=== PATIENT | male | born 1945 | race Caucasian/White ===

== ENCOUNTER 2018-11-25 12:18 | Inpatient (IN) | payer MEDICARE, BC ==
--- NOTE | 2017-11-26 21:45 | NUR ---
PT TO ROOM 103 S/P CYSTOSCOPY WITH OPEN BLADDER REPAIR, O.R. NURSE MAGUI AT BEDSIDE. DR URENA HERE PRIOR TO ARRIVAL, PROCEDURE EXPLAINED TO RN, ORDERS FOR CBI GIVEN. UPON ARRIVAL, PATIENT DROWSY BUT ANSWERING QUESTIONS APPROPRIATELY. ALL VSS, RECHECK HGB 11.0. FAMILY AT BEDSIDE- UPDATED ON PT STATUS/PLAN OF CARE.
[~2018-11-25] VITALS: Ht 172.7 cm; Wt 85.5 kg
[~2018-11-25 12:18] MED LIST: ASPI-482 PO; FENO134C PO; FENO145T PO; HYDR-2765 PO; PIOG30TA41 PO; POLY17PO28 PO; RAMI2.5C2 PO; SIMV40TA PO; SIMV80TA17 PO
[2018-11-25 13:08] LABS: CLARITY,URINE BLOODY; COLOR,URINE RED
[2018-11-25 13:09] LABS: BACTERIA,URINE MANY /HPF (0-FEW); RBC,URINE TNTC /HPF (0-2)
[2018-11-25 13:37] LABS: BASO # 0.1 x10^3/uL (0.0-0.2); BASO % 1 % (0-3); EOS # 0.1 x10^3/uL (0.0-0.7); EOS % 2 % (0-3); HEMATOCRIT 30.1 % (39.0-53.0); HEMOGLOBIN 9.9 g/dL (13.0-17.5); LYMPH # 1.1 x10^3/uL (1.0-4.8); LYMPH % 17 % (24-48); MEAN CORPUSCULAR HEMOGLOBIN 34 pg (25-35); MEAN CORPUSCULAR HGB CONC 33 g/dL (31-37); MEAN CORPUSCULAR VOLUME 103 fL (79-100); MONO # 0.6 x10^3/uL (0.0-1.1); MONO % 8 % (0-9); NEUT # 4.8 x10^3uL (1.8-7.7); NEUT % 72 % (31-73); PLATELET COUNT 311 x10^3/uL (140-400); RED BLOOD COUNT 2.93 x10^6/uL (4.30-5.70); RED CELL DISTRIBUTION WIDTH 19.8 % (11.5-14.5); WHITE BLOOD COUNT 6.6 x10^3/uL (4.0-11.0)
[2018-11-25 13:56] LABS: CALCIUM 9.5 mg/dL (8.5-10.1); CREATININE 1.1 mg/dL (0.7-1.3); POTASSIUM 4.9 mmol/L (3.5-5.1)
[2018-11-25 14:03] LABS: ALBUMIN 3.4 g/dL (3.4-5.0); ALBUMIN/GLOBULIN RATIO 0.9 (1.0-1.7); TOTAL BILIRUBIN 0.5 mg/dL (0.2-1.0); TOTAL PROTEIN 7.1 g/dL (6.4-8.2)
[2018-11-25] MEDS ORDERED: IV NORMAL SALINE 500ML BAG 500 ML IV ONE (14:30)
[2018-11-25] MEDS ORDERED: cefTRIAXone IV Push 1 GM VIAL. IVP ONE (14:30)
[2018-11-25] MEDS ORDERED: OPIUM/BELLADONNA 30/16.2MG SUPP.RECT. PR ONE (15:15)
[2018-11-25] MEDS ORDERED: diazePAM 5 MG TABLET PO ONE (15:45)
--- NOTE | 2018-11-25 15:53 | PHYS DOC ---
Past Medical History Past Medical History: Cancer, Depression, Diabetes-Type II, High Cholesterol, Other Additional Past Medical Histor: prostate cancer with radiation treatment Past Surgical History: No Surgical History, Tonsillectomy, Other Additional Past Surgical Histo: right hip fx repair, adenoidectomy Alcohol Use: None Drug Use: None Adult General Chief Complaint Chief Complaint: URINARY RETENTION [facility] HPI Patient is a 73 year old male who presents to the emergency department with complaints of suprapubic pain and acute urinary retention. Patient reports that he was last able to urinate about 5:00 this morning. Since then he has not been able to urinate the only thing that has come out of his penis is bright red blood. Patient denies any fever, dysuria, back pain, testicular pain, testicular swelling, groin pain, nausea, vomiting, shortness of breath, or chest pain. He reports that the pain in his suprapubic area is a 10/10 on the pain scale, there are no alleviating factors, the pain is constant and increases with suprapubic palpation. Review of Systems Review of Systems Constitutional: Denies fever or chills [] Eyes: Denies change in visual acuity, redness, or eye pain [] HENT: Denies nasal congestion or sore throat [] Respiratory: Denies cough or shortness of breath [] Cardiovascular: No additional information not addressed in HPI [] GI: Denies abdominal pain, nausea, vomiting, bloody stools or diarrhea [] : Denies dysuria or hematuria [] Musculoskeletal: Denies back pain or joint pain [] Integument: Denies rash or skin lesions [] Neurologic: Denies headache, focal weakness or sensory changes [] Endocrine: Denies polyuria or polydipsia [] All other systems were reviewed and found to be within normal limits, except as documented in this note. Allergies Allergies Allergies Coded Allergies Type Severity Reaction Last Updated Verified No Known Drug Allergies 10/14/13 No Physical Exam Physical Exam Constitutional: Well developed, well nourished, moderate distress, ill appearance. [] HENT: Normocephalic, atraumatic, bilateral external ears normal,nose normal. [] Eyes: conjunctiva normal, no discharge. [] Neck: Normal range of motion, no stridor. [] Cardiovascular: Heart rate regular rhythm, no murmur [] Lungs & Thorax: Bilateral breath sounds clear to auscultation, diminished in bases bilat [] Abdomen: Bowel sounds normal, soft, no pulsatile masses; suprapubic tenderness and firmness to palpation. Skin: Warm, dry, no erythema, no rash. [] Extremities: No cyanosis, no edema. [] Neurologic: Alert and oriented X 3, normal motor function, normal sensory function, no focal deficits noted. [] Psychologic: Affect anxious, judgement normal Current Patient Data Vital Signs Vital Signs Date Time Temp Pulse Resp B/P (MAP) Pulse Ox O2 Delivery O2 Flow Rate FiO2 11/25/18 12:30 97.6 97 18 138/60 (86) 94 Room Air 97.6 Lab Values Laboratory Tests Test 11/25/18 12:46 11/25/18 13:25 Urine Collection Type Unknown Urine Color Red Urine Clarity Bloody Urine pH Urine Specific [place] Urine Protein mg/dL (NEG-TRACE) Urine Glucose (UA) mg/dL (NEG) Urine Ketones (Stick) mg/dL (NEG) Urine Blood (NEG) Urine Nitrite (NEG) Urine Bilirubin (NEG) Urine Urobilinogen Dipstick mg/dL (0.2 mg/dL) Urine Leukocyte Esterase (NEG) Urine RBC Tntc /HPF (0-2) Urine WBC 5-10 /HPF (0-4) Urine Bacteria Many /HPF (0-FEW) White Blood Count 6.6 x10^3/uL (4.0-11.0) Red Blood Count 2.93 x10^6/uL (4.30-5.70) L Hemoglobin 9.9 g/dL (13.0-17.5) L Hematocrit 30.1 % (39.0-53.0) L Mean Corpuscular Volume 103 fL (79-100) H Mean Corpuscular Hemoglobin 34 pg (25-35) Mean Corpuscular Hemoglobin Concent 33 g/dL (31-37) Red Cell Distribution Width 19.8 % (11.5-14.5) H Platelet Count 311 x10^3/uL (140-400) Neutrophils (%) (Auto) 72 % (31-73) Lymphocytes (%) (Auto) 17 % (24-48) L Monocytes (%) (Auto) 8 % (0-9) Eosinophils (%) (Auto) 2 % (0-3) Basophils (%) (Auto) 1 % (0-3) Neutrophils # (Auto) 4.8 x10^3uL (1.8-7.7) Lymphocytes # (Auto) 1.1 x10^3/uL (1.0-4.8) Monocytes # (Auto) 0.6 x10^3/uL (0.0-1.1) Eosinophils # (Auto) 0.1 x10^3/uL (0.0-0.7) Basophils # (Auto) 0.1 x10^3/uL (0.0-0.2) Sodium Level 140 mmol/L (136-145) Potassium Level 4.9 mmol/L (3.5-5.1) Chloride Level 105 mmol/L (98-107) Carbon Dioxide Level 29 mmol/L (21-32) Anion Gap 6 (6-14) Blood Urea Nitrogen 23 mg/dL (8-26) Creatinine 1.1 mg/dL (0.7-1.3) Estimated GFR (Cockcroft-Gault) 66.0 BUN/Creatinine Ratio 21 (6-20) H Glucose Level 120 mg/dL (70-99) H Calcium Level 9.5 mg/dL (8.5-10.1) Total Bilirubin 0.5 mg/dL (0.2-1.0) Aspartate Amino Transferase (AST) 22 U/L (15-37) Alanine Aminotransferase (ALT) 16 U/L (16-63) Alkaline Phosphatase 69 U/L (46-116) Total Protein 7.1 g/dL (6.4-8.2) Albumin 3.4 g/dL (3.4-5.0) Albumin/Globulin Ratio 0.9 (1.0-1.7) L Laboratory Tests 11/25/18 13:25 Laboratory Tests 11/25/18 13:25 EKG EKG 1554- rate 133 sinus tachycardia, no STEMI read by Dr. Westbrook at 1558 [] [][] Radiology/Procedures Radiology/Procedures bladder scan reveals 327 ml in bladder, packer insertion ordered, returned marissa blood, CBI ordered. Course & Med Decision Making Course & Med Decision Making Pertinent Labs and Imaging studies reviewed. (See chart for details) DX; UTI, acute urinary retention. CBC H&H improved from previous visit; CMP elevated glucose 120, BUN/travel cota ratio 21 ; UA marissa blood, 5-10 WBC, many bacteria 1gm IV rocephin ordered and 500 ml NS bolus 1427- Spoke with Dr. Rees will admit patient for acute urinary retention and UTI , advised that CBI has been initiated and 1 gm of rocephin has been ordered. 1515- [place] RN requests something to help with bladder spasms reports patient HR jumps to 150 with bladder spasms and pain, Opium/Belladoma 30/16.2 mg suppository ordered. 1542- Pt remains anxious PO valium odered 1550- EKG ordered, sinus tach no STEMI, read by Dr. Westbrook 1619- [place] RN notified this provider of continued patient tachycardia with bladder spasms after medications. 1625-Spoke with Sneha Farr APRN with urology who recommends PO pyridium and ditropan to help reduce bladder spasms. 181- [place] MEDINA notified this provider of change in patient condition during transfer. Paged Dr. Rees. 1820- Spoke with Dr. Rees and advised of pt response to transfer upstairs, per [place] MEDINA pt's heart rate increased to 160 after transfer and pt became diaphoretic and vomited. Dr. Rees notified of change in condition. Will order stat labs including H&H, and troponin. 1L of NS bolus, and a CT abd pelvis with IV contrast. [] Dragon Disclaimer Dragon Disclaimer This electronic medical record was generated, in whole or in part, using a voice recognition dictation system. Departure Departure Impression: Primary Impression: UTI (urinary tract infection) Additional Impression: Acute urinary retention Disposition: HOME, SELF-CARE Condition: STABLE Referrals: MARCO REES MD (PCP) Problem Qualifiers Primary Impression: UTI (urinary tract infection) Urinary tract infection type: site unspecified Hematuria presence: with hematuria Qualified Codes: N39.0 - Urinary tract infection, site not specified ; R31.9 - Hematuria, unspecified ERICA TATUM APRN Nov 25, 2018 15:53
--- NOTE | 2018-11-25 16:00 | EKG ---
[facility] [address] [place] [address] Test Date: 2018-11-25 Test Time: 15:54:32 Pat Name: AUTUMN POND Department: Room: [facility] Gender: M Truck Trailer Mechanic: : 1945 Requested By: ERICA TATUM Order Number: [id number] Reading MD: Carlin Lynn MD Measurements Intervals [place] Rate: 133 P: 15 DE: 130 QRS: 62 QRSD: 92 T: 39 QT: 298 QTc: 445 Interpretive Statements SINUS TACHYCARDIA Electronically Signed On 11-29-2018 13:19:23 CDT by Carlin Lynn MD
[2018-11-25] MEDS ORDERED: OXYBUTYNIN CHLORIDE 5 MG TABLET PO ONE (16:45)
[2018-11-25] MEDS ORDERED: PHENAZOPYRIDINE 200 MG TABLET. PO ONE (16:45)
[2018-11-25 17:51] VITALS: BP 171/81
[2018-11-25] MEDS ORDERED: DIGOXIN IV 500 MCG/2 ML AMPUL. IV ONE (18:00)
[2018-11-25] MEDS ORDERED: ONDANSETRON PF 4 MG/2 ML VIAL. IV PRN (18:30)
[2018-11-25] MEDS ORDERED: IV NORMAL SALINE 1000ML BAG 1,000 ML IV ONE (18:30)
[2018-11-25] MEDS ORDERED: IOHEXOL 300 MG/ML 100ML VIAL. IV ONE (19:00)
[2018-11-25] MEDS ORDERED: CONTRAST GIVEN. MC PRN (19:00)
--- NOTE | 2018-11-25 19:10 | NUR ---
Pt assessed at 1830 pt with continuos bladder spasms and dry heaving. Pt tachycardic and diaphoretic. Pt denied SOA and is breathing normally. Pt states bladder spasm are constant. Pt 3 way Chappell catheter connected to continuos bladder irrigation is not draining. Continuos Irrigation is stopped at time of my arrival to patient. paged by RN prior to my assessment. Pt 3 way can be manually flush with sterile water, but no return of fluid. Pt bladder scanned at 1845 with 488cc in bladder using multiple scans from multiple angles. [address] Chappell is removed and replaced with a matching 22fr 3 way catheter using sterile technique. Immediate return of bright red blood. Balloon filled with 30cc normal saline. and Continuous irrigation resumed. Pt showed signs of relief. Pt no longer diaphoretic. Pt reports bladder spasms have become less frequent. Pt with no dry heaving post insertion of new catheter. Previous catheter had large blood clot on the tip as well as a large blood clot connected that came out during removal. New 3 way is patent at this time. Pt still tachycardic but in less distress at this time. Call light in reach. Nurse at bedside to administer medication. Will continue to monitor and follow plan of care.
[2018-11-25] MEDS ORDERED: CITA10TA4 PO (19:19)
[2018-11-25] MEDS ORDERED: FENO145T30 PO (19:19)
[2018-11-25] MEDS: fentaNYL PF VIAL 100 MCG/2 ML VIAL IV PRN (19:29)
[2018-11-25 19:42] LABS: HEMATOCRIT 25.6 % (39.0-53.0); HEMOGLOBIN 8.5 g/dL (13.0-17.5)
[2018-11-25 20:31] VITALS: BP 136/65
--- NOTE | 2018-11-25 20:55 | RAD ---
Examination: CT ABD PELV W/ IV CONTRST ONLY History: gross hematuria, uti, urinary retention, blood clots in bladder, no priors, [id number] 75ml Comparison/Correlation: CT pelvis without contrast 10/04/2018 Findings: Axial images of the abdomen and pelvis were obtained following IV contrast. Sagittal and coronal reformatted images provided. Visualized lung bases are clear. Small hiatal hernia is present. Liver, spleen, pancreas, and adrenal glands are normal. Kidneys are normal. Significant calculation about the left renal artery proximally noted. No extraluminal gas or evidence of bowel obstruction. No inflammatory changes about the cecum. Appendix is not identified. Chappell catheter is present within the urinary bladder. Gas is evident within the urinary bladder. High density urine noted within the urinary bladder. There is no contrast identified within the ureters. This high density within the urinary bladder presumably represents hemorrhage. Low-density nondependent urine also noted. Surrounding stranding about the urinary bladder is evident. Minimal fluid within the iliac fossa inferiorly bilaterally is noted. Sacralization of L5 noted. Compression deformity of L4 is notable. Mild compression deformity of L2 and L3 evident. Left inguinal hernias present. Right hip joint prosthesis noted. Impression: High density within the urinary bladder which presumably represents hemorrhage and clot. Surrounding inflammatory change appears to present. Correlate for underlying hemorrhagic cystitis. Underlying urinary bladder mass lesions are not excluded on the basis of this exam. Calcification and plaque of the left main renal artery origin and proximal aspect. Stenosis is probably present but this exam was not performed for arteriographic assessment protocol. PQRS Compliance Statement: One or more of the following individualized dose reduction techniques were utilized for this examination: 1. Automated exposure control 2. Adjustment of the mA and/or kV according to patient size 3. Use of iterative reconstruction technique Electronically signed by: Sonny Mendoza MD (11/25/2018 8:52 PM) [facility]
[2018-11-25] MEDS: SIMVASTATIN 40 MG TABLET. PO SCH (21:56)
[2018-11-25] MEDS: FENOFIBRATE,MICRONIZED 134 MG CAPSULE PO SCH (21:56)
[2018-11-25] MEDS: CITALOPRAM 10 MG TABLET. PO SCH (21:56)
[2018-11-25 23:01] VITALS: BP 123/67
[2018-11-26] VITALS (11 sets, daily range): BP systolic 61–139; BP diastolic 14–69
[2018-11-26] MEDS: fentaNYL PF VIAL 100 MCG/2 ML VIAL IV PRN ×5 (01:38→22:26)
--- NOTE | 2018-11-26 02:23 | NUR ---
at 0100 NEEDED TO CHANGE OUT BROWN BAG DUE TO BOTH PORTS BEING BLOCKED IN BROWN BAG WHICH DOESNT LET THE BAG BE EMPTIED. THIS WAS DONE EXTREMLY QUICK. ONCED THE NEW TOÑO WAS HOOKED UP, FLOW NOW IS DOWN TO A DRIP. ATTEMPTED TO FLUSH BROWN PORT TO MOVE THE CLOT. NO LUCK. SYRINGE WOULDNT PULL BACK EITHER. PT COULDNT TOLERATE DOING ANYTHING ELSE. PRIOR TO STARTING GAVE FENTANYL IV. WILL CONTAct icu chg for any other suggestions. lcrn
--- NOTE | 2018-11-26 02:30 | NUR ---
went to check on pt. packer bag is half full of bright red blood. flowing much better. pt has relaxed enough that hr was 135 now it is 115. and he is calmly resting. will continue to monitor closely lcrn
[2018-11-26] MEDS ORDERED: LIDOCAINE 2% JELLY 6ML IN APPLICATOR. ONE (03:00)
[2018-11-26 04:54] LABS: BASO % 0 % (0-3); EOS % 0 % (0-3); HEMATOCRIT 24.1 % (39.0-53.0); HEMOGLOBIN 7.9 g/dL (13.0-17.5); LYMPH # 0.7 x10^3/uL (1.0-4.8); LYMPH % 7 % (24-48); MEAN CORPUSCULAR HEMOGLOBIN 34 pg (25-35); MEAN CORPUSCULAR HGB CONC 33 g/dL (31-37); MEAN CORPUSCULAR VOLUME 103 fL (79-100); MONO # 0.6 x10^3/uL (0.0-1.1); MONO % 5 % (0-9); NEUT # 9.6 x10^3uL (1.8-7.7); NEUT % 88 % (31-73); PLATELET COUNT 307 x10^3/uL (140-400); RED BLOOD COUNT 2.35 x10^6/uL (4.30-5.70); RED CELL DISTRIBUTION WIDTH 19.6 % (11.5-14.5); WHITE BLOOD COUNT 10.9 x10^3/uL (4.0-11.0)
--- NOTE | 2018-11-26 06:45 | NUR ---
GAVE PT IV ZOFRAN FOR DRY HEAVES AND IV FENTANYL. PT HASNT SLEPT ALL NIGHT. HE WOULD DOZE OFF AND THEN BAG OR IRRAGATION NEEDED TO BE CHANGED OUT AND HE WOULD AROUSE, HE IS SLIGHTLY CONFUSED THIS AM. CORAZON BELCHER IS ON HER WAY UP TO SEE HIM. LCRN
--- NOTE | 2018-11-26 08:45 | NUR ---
premedicated with fentanyl IV for WELDER SHIELDED METAL ARC to irrigate clotted packer cath
[2018-11-26] MEDS ORDERED: ASPIRIN ENTERIC COATED 81 MG TABLET.DR. PO SCH (09:00)
[2018-11-26] MEDS ORDERED: LISINOPRIL 5 MG TABLET. PO SCH (09:00)
[2018-11-26 09:02] LABS: % BANDS 1 % (0-9); % LYMPHS 7 % (24-48); % MONOS 2 % (0-10); % SEGS 90 % (35-66); PLT ESTIMATE ADEQUATE (ADEQUATE)
[2018-11-26] MEDS: PIOGLITAZONE 15 MG TABLET. PO SCH (09:25)
--- NOTE | 2018-11-26 09:32 | PDOC2 ---
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 Kennedy Identification/Chief Complaint Chief Complaint Gross Hematuria Source Source: Caregiver, Chart review, Patient History of Present Illness Reason for Visit: Patient is a 73 year old male who presented to ED last night with gross hematuria. He has a history of prostate cancer for which he received radiation treatment at the direction of Dr. Cuenca and was told he is no longer cancer free. He sees Dr. Cuenca once a year for follow up and last saw him this summer. He denies a history of bladder cancer. He currently has CBI running , but nursing staff is concerned that there is a lot of clots coming out and we have seen a large clot on the CT (around 300-400 ml worth of clot). I discussed procedure for hand irrigation with patient and he is agreeable to RN PHYSICIAN OFFICE trying to evacuate the clot from the bladder in this manner. Past Medical History Cardiovascular: CAD, Other Heme/Onc: Other Past Surgical History Past Surgical History: Other Current Problem List Problems: (1) UTI (urinary tract infection) (2) Acute urinary retention Current Medications Current Medications Current Medications Aspirin (Ecotrin) 81 mg DAILY PO ; Start 11/26/18 at 09:00 Belladonna Alkaloids/Opium (B & O) 1 supp 1X ONCE [place] Last administered on at 15:33; Start 11/25/18 at 15:15; Stop 11/25/18 at 15:17; Status DC Ceftriaxone Sodium (Rocephin) 1 gm 1X ONCE IVP Last administered on 11/25/18at 14:54; Start 11/25/18 at 14:30; Stop 11/25/18 at 14:31; Status DC Citalopram Hydrobromide (CeleXA) 10 mg QHS PO Last administered on 11/25/18at 21: 56; Start 11/25/18 at 21:00 Diazepam (Valium) 5 mg 1X ONCE PO Last administered on 11/25/18at 16:06; Start 11/25/18 at 15:45; Stop 11/25/18 at 15:46; Status DC Digoxin (Lanoxin) 500 mcg 1X ONCE IV Last administered on 11/25/18 18:02; Start 11/25/18 at 18:00; Stop 11/25/18 at 18:04; Status DC Fenofibrate (Lofibra) 134 mg QHS PO Last administered on 11/25/18 21:56; Start 11/25/18 at 21:00 Fentanyl Citrate (Fentanyl 2ml Vial) 25 mcg PRN Q2HR PRN IV PAIN MODERATE Last administered on 11/25/18 19:29; Start 11/25/18 at 18:30 Fentanyl Citrate (Fentanyl 2ml Vial) 50 mcg PRN Q2HR PRN IV PAIN SEVERE Last administered on 11/26/18 08:49; Start 11/25/18 at 18:30 Influenza Virus Vaccine (Afluria Trivalent [id number] Syringe) 0.5 ml ONCE ONCE VAX IM ; Start 11/26/18 at 09:00; Stop 11/26/18 at 09:01; Status DC Info (CONTRAST GIVEN -- Rx MONITORING) 1 each PRN DAILY PRN MC SEE COMMENTS; Start 11/25/18 at 19:00; Stop 11/27/18 at 18:59 Iohexol (Omnipaque 300 Mg/ml) 75 ml 1X ONCE IV Last administered on 11/25/18 19:00; Start 11/25/18 at 19:00; Stop 11/25/18 at 19:01; Status DC Lisinopril (Prinivil) 5 mg DAILY PO ; Start 11/26/18 at 09:00 Lorazepam (Ativan) 0.5 mg PRN Q6HRS PRN IV ANXIETY / AGITATION Last administered on 11/25/18 19:22; Start 11/25/18 at 18:30 Ondansetron HCl (Zofran) 4 mg PRN Q6HRS PRN IV NAUSEA/VOMITING Last administered on 11/26/18 06:32; Start 11/25/18 at 18:30 Oxybutynin Chloride (Ditropan) 5 mg 1X ONCE PO Last administered on 11/25/18 17:07; Start 11/25/18 at 16:45; Stop 11/25/18 at 16:46; Status DC Phenazopyridine HCl (Pyridium) 200 mg 1X ONCE PO Last administered on 16:43; Start 11/25/18 at 16:45; Stop 11/25/18 at 16:46; Status DC Pioglitazone HCl (Actos) 30 mg DAILY PO ; Start 11/26/18 at 09:00 Simvastatin (Zocor) 40 mg QHS PO Last administered on 11/25/18at 21:56; Start 11/25/18 at 21:00 Sodium Chloride 500 ml @ 500 mls/hr 1X ONCE IV Last administered on 11/25/18at 14:52; Start 11/25/18 at 14:30; Stop 11/25/18 at 15:29; Status DC Sodium Chloride 1,000 ml @ 1,000 mls/hr 1X ONCE IV Last administered on at 18:41; Start 11/25/18 at 18:30; Stop 11/25/18 at 19:29; Status DC Allergies Allergies: Coded Allergies: No Known Drug Allergies (Unverified , 10/14/13) nkda verified ROS Review Of Systems: CONSTITUTIONAL: No fever or chills EYES: No recent changes SKIN: No rash or itching CARDIOVASCULAR: No chest pain, syncope, palpitations, or edema RESPIRATORY: No SOB or cough GASTROINTESTINAL: No nausea, vomiting or abdominal pain NEUROLOGICAL: No headaches or weakness ENDOCRINE: No cold or heat intolerance GENITOURINARY: + hematuria MUSCULOSKELETAL: No back pain or joint pain LYMPHATICS: No enlarged lymph nodes PSYCHIATRIC: No anxiety or depression Physical Exam Physical Exam: General: Pleasant, no acute distress, well groomed Eyes: conjunctiva anicteric, eyes full range of motion ENT: moist oral mucosa, normal dentition Neck: Trachea midline, no masses Respiratory: unlabored breathing, not using accessory muscles Pelvic: Circ phallus with [address] way Chapp[place] with CBI in place. RN PHYSICIAN OFFICE Yordan evacuated 2- 300 ml of clot by hand with 2500 cc of NS using hand irrigation technique, total of 35 minutes spent with patient evacuating bladder in this way. At the end of the procedure, return from CBI was a light pink to light red watermelon color. Abdomen: nontender, nondistended, no hepatosplenomegaly, no masses Skin: no rashes or skin lesions on visualized skin Psych: normal mood, affect. Alert and oriented x 3. Vitals VITALS Vital Signs Date Time Temp Pulse Resp B/P (MAP) Pulse Ox O2 Delivery O2 Flow Rate FiO2 11/26/18 08:49 17 Room Air 11/26/18 07:00 98.0 122 130/65 (86) 96 98.0 11/25/18 15:33 96.0 Labs Labs Laboratory Tests Test 11/25/18 12:46 11/25/18 13:25 11/25/18 18:40 11/25/18 20:59 Urine Collection Type Unknown Urine Color Red Urine Clarity Bloody Urine pH Urine Specific [place] Urine Protein mg/dL (NEG-TRACE) Urine Glucose (UA) mg/dL (NEG) Urine Ketones (Stick) mg/dL (NEG) Urine Blood (NEG) Urine Nitrite (NEG) Urine Bilirubin (NEG) Urine Urobilinogen Dipstick mg/dL (0.2 mg/dL) Urine Leukocyte Esterase (NEG) Urine RBC Tntc /HPF (0-2) Urine WBC 5-10 /HPF (0-4) Urine Bacteria Many /HPF (0-FEW) White Blood Count 6.6 x10^3/uL (4.0-11.0) Red Blood Count 2.93 x10^6/uL (4.30-5.70) Hemoglobin 9.9 g/dL (13.0-17.5) 8.5 g/dL (13.0-17.5) Hematocrit 30.1 % (39.0-53.0) 25.6 % (39.0-53.0) Mean Corpuscular Volume 103 fL (79-100) Mean Corpuscular Hemoglobin 34 pg (25-35) Mean Corpuscular Hemoglobin Concent 33 g/dL (31-37) Red Cell Distribution Width 19.8 % (11.5-14.5) Platelet Count 311 x10^3/uL (140-400) Neutrophils (%) (Auto) 72 % (31-73) Lymphocytes (%) (Auto) 17 % (24-48) Monocytes (%) (Auto) 8 % (0-9) Eosinophils (%) (Auto) 2 % (0-3) Basophils (%) (Auto) 1 % (0-3) Neutrophils # (Auto) 4.8 x10^3uL (1.8-7.7) Lymphocytes # (Auto) 1.1 x10^3/uL (1.0-4.8) Monocytes # (Auto) 0.6 x10^3/uL (0.0-1.1) Eosinophils # (Auto) 0.1 x10^3/uL (0.0-0.7) Basophils # (Auto) 0.1 x10^3/uL (0.0-0.2) Sodium Level 140 mmol/L (136-145) Potassium Level 4.9 mmol/L (3.5-5.1) Chloride Level 105 mmol/L (98-107) Carbon Dioxide Level 29 mmol/L (21-32) Anion Gap 6 (6-14) Blood Urea Nitrogen 23 mg/dL (8-26) Creatinine 1.1 mg/dL (0.7-1.3) Estimated GFR (Cockcroft-Gault) 66.0 BUN/Creatinine Ratio 21 (6-20) Glucose Level 120 mg/dL (70-99) Calcium Level 9.5 mg/dL (8.5-10.1) Total Bilirubin 0.5 mg/dL (0.2-1.0) Aspartate Amino Transf (AST/SGOT) 22 U/L (15-37) Alanine Aminotransferase (ALT/SGPT) 16 U/L (16-63) Alkaline Phosphatase 69 U/L (46-116) Total Protein 7.1 g/dL (6.4-8.2) Albumin 3.4 g/dL (3.4-5.0) Albumin/Globulin Ratio 0.9 (1.0-1.7) Troponin I Quantitative 0.027 ng/mL (0.000-0.055) Glucose (Fingerstick) 133 mg/dL (70-99) Test 11/26/18 04:35 11/26/18 07:07 White Blood Count 10.9 x10^3/uL (4.0-11.0) Red Blood Count 2.35 x10^6/uL (4.30-5.70) Hemoglobin 7.9 g/dL (13.0-17.5) Hematocrit 24.1 % (39.0-53.0) Mean Corpuscular Volume 103 fL (79-100) Mean Corpuscular Hemoglobin 34 pg (25-35) Mean Corpuscular Hemoglobin Concent 33 g/dL (31-37) Red Cell Distribution Width 19.6 % (11.5-14.5) Platelet Count 307 x10^3/uL (140-400) Neutrophils (%) (Auto) 88 % (31-73) Lymphocytes (%) (Auto) 7 % (24-48) Monocytes (%) (Auto) 5 % (0-9) Eosinophils (%) (Auto) 0 % (0-3) Basophils (%) (Auto) 0 % (0-3) Neutrophils # (Auto) 9.6 x10^3uL (1.8-7.7) Lymphocytes # (Auto) 0.7 x10^3/uL (1.0-4.8) Monocytes # (Auto) 0.6 x10^3/uL (0.0-1.1) Eosinophils # (Auto) 0.0 x10^3/uL (0.0-0.7) Basophils # (Auto) 0.0 x10^3/uL (0.0-0.2) Segmented Neutrophils % 90 % (35-66) Band Neutrophils % 1 % (0-9) Lymphocytes % 7 % (24-48) Monocytes % 2 % (0-10) Platelet Estimate Adequate (ADEQUATE) Glucose (Fingerstick) 201 mg/dL (70-99) Laboratory Tests Test 11/25/18 12:46 11/25/18 13:25 11/25/18 18:40 11/25/18 20:59 Urine Collection Type Unknown Urine Color Red Urine Clarity Bloody Urine pH Urine Specific [place] Urine Protein mg/dL (NEG-TRACE) Urine Glucose (UA) mg/dL (NEG) Urine Ketones (Stick) mg/dL (NEG) Urine Blood (NEG) Urine Nitrite (NEG) Urine Bilirubin (NEG) Urine Urobilinogen Dipstick mg/dL (0.2 mg/dL) Urine Leukocyte Esterase (NEG) Urine RBC Tntc /HPF (0-2) Urine WBC 5-10 /HPF (0-4) Urine Bacteria Many /HPF (0-FEW) White Blood Count 6.6 x10^3/uL (4.0-11.0) Red Blood Count 2.93 x10^6/uL (4.30-5.70) Hemoglobin 9.9 g/dL (13.0-17.5) 8.5 g/dL (13.0-17.5) Hematocrit 30.1 % (39.0-53.0) 25.6 % (39.0-53.0) Mean Corpuscular Volume 103 fL (79-100) Mean Corpuscular Hemoglobin 34 pg (25-35) Mean Corpuscular Hemoglobin Concent 33 g/dL (31-37) Red Cell Distribution Width 19.8 % (11.5-14.5) Platelet Count 311 x10^3/uL (140-400) Neutrophils (%) (Auto) 72 % (31-73) Lymphocytes (%) (Auto) 17 % (24-48) Monocytes (%) (Auto) 8 % (0-9) Eosinophils (%) (Auto) 2 % (0-3) Basophils (%) (Auto) 1 % (0-3) Neutrophils # (Auto) 4.8 x10^3uL (1.8-7.7) Lymphocytes # (Auto) 1.1 x10^3/uL (1.0-4.8) Monocytes # (Auto) 0.6 x10^3/uL (0.0-1.1) Eosinophils # (Auto) 0.1 x10^3/uL (0.0-0.7) Basophils # (Auto) 0.1 x10^3/uL (0.0-0.2) Sodium Level 140 mmol/L (136-145) Potassium Level 4.9 mmol/L (3.5-5.1) Chloride Level 105 mmol/L (98-107) Carbon Dioxide Level 29 mmol/L (21-32) Anion Gap 6 (6-14) Blood Urea Nitrogen 23 mg/dL (8-26) Creatinine 1.1 mg/dL (0.7-1.3) Estimated GFR (Cockcroft-Gault) 66.0 BUN/Creatinine Ratio 21 (6-20) Glucose Level 120 mg/dL (70-99) Calcium Level 9.5 mg/dL (8.5-10.1) Total Bilirubin 0.5 mg/dL (0.2-1.0) Aspartate Amino Transf (AST/SGOT) 22 U/L (15-37) Alanine Aminotransferase (ALT/SGPT) 16 U/L (16-63) Alkaline Phosphatase 69 U/L (46-116) Total Protein 7.1 g/dL (6.4-8.2) Albumin 3.4 g/dL (3.4-5.0) Albumin/Globulin Ratio 0.9 (1.0-1.7) Troponin I Quantitative 0.027 ng/mL (0.000-0.055) Glucose (Fingerstick) 133 mg/dL (70-99) Test 11/26/18 04:35 11/26/18 07:07 White Blood Count 10.9 x10^3/uL (4.0-11.0) Red Blood Count 2.35 x10^6/uL (4.30-5.70) Hemoglobin 7.9 g/dL (13.0-17.5) Hematocrit 24.1 % (39.0-53.0) Mean Corpuscular Volume 103 fL (79-100) Mean Corpuscular Hemoglobin 34 pg (25-35) Mean Corpuscular Hemoglobin Concent 33 g/dL (31-37) Red Cell Distribution Width 19.6 % (11.5-14.5) Platelet Count 307 x10^3/uL (140-400) Neutrophils (%) (Auto) 88 % (31-73) Lymphocytes (%) (Auto) 7 % (24-48) Monocytes (%) (Auto) 5 % (0-9) Eosinophils (%) (Auto) 0 % (0-3) Basophils (%) (Auto) 0 % (0-3) Neutrophils # (Auto) 9.6 x10^3uL (1.8-7.7) Lymphocytes # (Auto) 0.7 x10^3/uL (1.0-4.8) Monocytes # (Auto) 0.6 x10^3/uL (0.0-1.1) Eosinophils # (Auto) 0.0 x10^3/uL (0.0-0.7) Basophils # (Auto) 0.0 x10^3/uL (0.0-0.2) Segmented Neutrophils % 90 % (35-66) Band Neutrophils % 1 % (0-9) Lymphocytes % 7 % (24-48) Monocytes % 2 % (0-10) Platelet Estimate Adequate (ADEQUATE) Glucose (Fingerstick) 201 mg/dL (70-99) Images Images Impression: High density within the urinary bladder which presumably represents hemorrhage and clot. Surrounding inflammatory change appears to present. Correlate for underlying hemorrhagic cystitis. Underlying urinary bladder mass lesions are not excluded on the basis of this exam. Calcification and plaque of the left main renal artery origin and proximal aspect. Stenosis is probably present but this exam was not performed for arteriographic assessment protocol. Assessment/Plan Assessment/Plan Successful evacuation of about 2-300 ml of clot from bladder by hand by RN PHYSICIAN OFFICE Yordan. RN PHYSICIAN OFFICE Yordan did a second round of irrigation at noon and got a 100 ml of clots out. 3rd irrigation was done at 1510 for a return of only about 25 ml of clots. Discussed success with surgeon Dr. Rodrigues; we will not take patient to OR today. Patient may eat today, regular diet. Demonstrated hand irrigation technique to attending RN. She may do this TID PRN clots/CBI troubleshooting. Continue CBI, titrate to light pink lemonade to light Gatorade color. Pyridium 200 mg TID prn discomfort/pain Ditropan 5 mg TID scheduled for bladder spasms. Will follow UPDATE: Around 3 pm RN PHYSICIAN OFFICE Yordan irrigated one more time for a return of only about 25 ml of clots, significant improvement since noon and also since early this am around 0845. However, after irrigation procedure, it was noted that his BP was very low at 72/43 Orders given for One time bolus of NS 500 and Stat CBC Informed RN to notify who is primary for further orders Dr. Rodrigues also aware of patient status. QING RODRIGUES MD 11/26/18 1525: UROLOGY CONSULT Assessment/Plan Assessment/Plan agree w above. might need clots evac given size of clot on CT. needs to stable hemodynamically before taking to OR. MAGUI WOOD APRN Nov 26, 2018 09:32 QING RODRIGUES MD Nov 26, 2018 15:25
[2018-11-26] MEDS ORDERED: PHENAZOPYRIDINE 200 MG TABLET. PO PRN (09:45)
[2018-11-26] MEDS: OXYBUTYNIN CHLORIDE 5 MG TABLET PO SCH ×3 (11:03→21:00)
--- NOTE | 2018-11-26 11:45 | NUR ---
Nursing: Patients continuous bladder irrigation was running and no urine output. Continuous bladder irrigation stopped. Sneha Farr called and came to the unit. Bedside irrigation completed by Sneha. Multiple clots removed. Bladder irrigation reconnected and draining well. Will continue to closely monitor.
--- NOTE | 2018-11-26 13:59 | PDOC2 ---
CARDIAC CONSULT DATE OF CONSULT Date of Consult DATE: 11/26/18 TIME: 13:52 REASON FOR CONSULT Reason for Consult: sustained tachycardia REFERRING PHYSICIAN Referring Physician: Ольга Valentin APRN SOURCE Source: Chart review, Patient HISTORY OF PRESENT ILLNESS HISTORY OF PRESENT ILLNESS This is a 73 yo male who presented secondary to suprapubic pain and acute urinary retention. Patient presently very drowsy as he did not sleep much of the night. HPI mainly obtained from niece at bedside and chart review. Patient woke up yesterday morning and was unable to urinate. Around noon, was finally able to urinate; urine was bloody so he came into the ED for further evaluation and treatment. Was noted to be tachycardic in ED, which prompted this consult. Has a history of CAD s/p stent placement in 2006. Follows with Dr. Shaikh with [facility]. No recent stress test of echo that patient is aware of. PAST MEDICAL HISTORY Cardiovascular: CAD, HTN, Hyperlipidemia Pulmonary: No pertinent hx, Pneumonia CENTRAL NERVOUS SYSTEM: Other (no pertinent hx) GI: No pertinent hx Heme/Onc: Anemia NOS Psych: Anxiety, Depression Musculoskeletal: Osteoarthritis Rheumatologic: No pertinent hx Infectious disease: No pertinent hx ENT: No pertinent hx Renal/: No pertinent hx, Prostate Ca., Other (urinary retention) Endocrine: Diabetes Dermatology: No pertinent hx PAST SURGICAL HISTORY Past Surgical History: Tonsillectomy FAMILY HISTORY Family History: Hypertension SOCIAL HISTORY Smoke: No ALCOHOL: none Drugs: None Lives: with Family CURRENT MEDICATIONS CURRENT MEDICATIONS Current Medications Medications (Trade) Dose Ordered Sig/Corin Route PRN Reason Start Time Stop Time Status Last Admin Dose Admin Ceftriaxone Sodium (Rocephin) 1 gm 1X ONCE IVP 11/25/18 14:30 11/25/18 14:31 DC 11/25/18 14:54 Sodium Chloride 500 ml @ 500 mls/hr 1X ONCE IV 11/25/18 14:30 11/25/18 15:29 DC 11/25/18 14:52 Belladonna Alkaloids/Opium (B & O) 1 supp 1X ONCE [place] 11/25/18 15:15 11/25/18 15:17 DC 11/25/18 15:33 Diazepam (Valium) 5 mg 1X ONCE PO 11/25/18 15:45 11/25/18 15:46 DC 11/25/18 16:06 Oxybutynin Chloride (Ditropan) 5 mg 1X ONCE PO 11/25/18 16:45 11/25/18 16:46 DC 11/25/18 17:07 Phenazopyridine HCl (Pyridium) 200 mg 1X ONCE PO 11/25/18 16:45 11/25/18 16:46 DC 11/25/18 16:43 Digoxin (Lanoxin) 500 mcg 1X ONCE IV 11/25/18 18:00 11/25/18 18:04 DC 11/25/18 18:02 Sodium Chloride 1,000 ml @ 1,000 mls/hr 1X ONCE IV 11/25/18 18:30 11/25/18 19:29 DC 11/25/18 18:41 Fentanyl Citrate (Fentanyl 2ml Vial) 50 mcg PRN Q2HR PRN IV PAIN SEVERE 11/25/18 18:30 11/26/18 08:49 Fentanyl Citrate (Fentanyl 2ml Vial) 25 mcg PRN Q2HR PRN IV PAIN MODERATE 11/25/18 18:30 11/25/18 19:29 Lorazepam (Ativan) 0.5 mg PRN Q6HRS PRN IV ANXIETY / AGITATION 11/25/18 18:30 11/25/18 19:22 Ondansetron HCl (Zofran) 4 mg PRN Q6HRS PRN IV NAUSEA/VOMITING 11/25/18 18:30 11/26/18 06:32 Iohexol (Omnipaque 300 Mg/ml) 75 ml 1X ONCE IV 11/25/18 19:00 11/25/18 19:01 DC 11/25/18 19:00 Aspirin (Ecotrin) 81 mg DAILY PO 11/26/18 09:00 11/26/18 09:17 Citalopram Hydrobromide (CeleXA) 10 mg QHS PO 11/25/18 21:00 11/25/18 21:56 Fenofibrate (Lofibra) 134 mg QHS PO 11/25/18 21:00 11/25/18 21:56 Pioglitazone HCl (Actos) 30 mg DAILY PO 11/26/18 09:00 11/26/18 09:25 Lisinopril (Prinivil) 5 mg DAILY PO 11/26/18 09:00 11/26/18 09:19 Simvastatin (Zocor) 40 mg QHS PO 11/25/18 21:00 11/25/18 21:56 Influenza Virus Vaccine (Afluria Trivalent [id number] Syringe) 0.5 ml ONCE ONCE VAX IM 11/26/18 09:00 11/26/18 09:01 DC 11/26/18 09:22 Oxybutynin Chloride (Ditropan) 5 mg [id number] PO 11/26/18 10:00 11/26/18 11:03 ALLERGIES ALLERGIES: Coded Allergies: No Known Drug Allergies (Unverified , 10/14/13) nkda verified ROS Review of System 14 point ROS conducted with pertinent positives noted above in HPI. PHYSICAL EXAM General: Alert, Oriented X3, Cooperative, No acute distress HEENT: Atraumatic Lungs: Clear to auscultation, Other (diminished bases) Heart: Regular rate, Normal S1, Normal S2, Other (2/6 systolic murmur ) Abdomen: Soft, No tenderness Extremities: No edema, Normal pulses Skin: No significant lesion Neuro: Sensation intact Psych/Mental Status: Mental status NL, Other (drowsy) MUSCULOSKELETAL: Osteoarthritic changes both hands VITALS VITALS Vital Signs Date Time Temp Pulse Resp B/P (MAP) Pulse Ox O2 Delivery O2 Flow Rate FiO2 11/26/18 11:24 98.0 120 18 96/56 (69) 98 Room Air 98.0 11/25/18 15:33 96.0 LABS Lab: Laboratory Tests Test 11/25/18 18:40 11/25/18 20:59 11/26/18 04:35 11/26/18 07:07 Hemoglobin 8.5 g/dL (13.0-17.5) 7.9 g/dL (13.0-17.5) Hematocrit 25.6 % (39.0-53.0) 24.1 % (39.0-53.0) Troponin I Quantitative 0.027 ng/mL (0.000-0.055) Glucose (Fingerstick) 133 mg/dL (70-99) 201 mg/dL (70-99) White Blood Count 10.9 x10^3/uL (4.0-11.0) Red Blood Count 2.35 x10^6/uL (4.30-5.70) Mean Corpuscular Volume 103 fL (79-100) Mean Corpuscular Hemoglobin 34 pg (25-35) Mean Corpuscular Hemoglobin Concent 33 g/dL (31-37) Red Cell Distribution Width 19.6 % (11.5-14.5) Platelet Count 307 x10^3/uL (140-400) Neutrophils (%) (Auto) 88 % (31-73) Lymphocytes (%) (Auto) 7 % (24-48) Monocytes (%) (Auto) 5 % (0-9) Eosinophils (%) (Auto) 0 % (0-3) Basophils (%) (Auto) 0 % (0-3) Neutrophils # (Auto) 9.6 x10^3uL (1.8-7.7) Lymphocytes # (Auto) 0.7 x10^3/uL (1.0-4.8) Monocytes # (Auto) 0.6 x10^3/uL (0.0-1.1) Eosinophils # (Auto) 0.0 x10^3/uL (0.0-0.7) Basophils # (Auto) 0.0 x10^3/uL (0.0-0.2) Segmented Neutrophils % 90 % (35-66) Band Neutrophils % 1 % (0-9) Lymphocytes % 7 % (24-48) Monocytes % 2 % (0-10) Platelet Estimate Adequate (ADEQUATE) Test 11/26/18 10:53 Glucose (Fingerstick) 194 mg/dL (70-99) ECHOCARDIOGRAM ECHOCARDIOGRAM <Conclusion> The left ventricle is normal size. Left ventricular systolic function is normal.with an ejection fraction of 66% There is a Grade I diastolic dysfunction The mitral valve is normal The tricuspid and pulmonary valves are normal DATE: 09/12/13 1601 ASSESSMENT/PLAN ASSESSMENT/PLAN 1. Hematuria, significant clot formation causing obstruction; on CBI.- continue to have recurrent clotting. h/o prostate CA; urology following 2. Tachycardia, sinus; reactive. HR now better controlled 3. CAD s/p remote PCI/stent placement. Clinically stable. CP free. Follows with [facility] cardiology 4. Hypertension; now low-normotensive 5. Hyperlipemia; statin 6. DM, II; as per PCP 7. Anemia; monitor H and H Recommendations Echo to assess LV systolic function Secondary prevention measures; may hold ASA Hold ACEi while BP for now Will give fluid bolus Transfuse as warranted Add BB when BP better STEPHANY GARRIDO APRN Nov 26, 2018 13:59
--- NOTE | 2018-11-26 14:36 | NUR ---
SS following for discharge planning. SS reviewed pt chart. Pt is from home and is currently on room air. No discharge needs noted at this time. SS will continue to follow for pending discharge needs.
[2018-11-26] MEDS ORDERED: IV NORMAL SALINE 500ML BAG 500 ML IV ONE (15:30)
[2018-11-26] MEDS ORDERED: DEXAMETHASONE SOD PHOS 20 MG/5 ML VIAL. ONE (15:56)
[2018-11-26] MEDS ORDERED: FAMOTIDINE 20 MG/2 ML VIAL ONE (15:56)
[2018-11-26] MEDS ORDERED: MIDAZOLAM HCL/PF 2 MG/2 ML VIAL. ONE (15:56)
[2018-11-26] MEDS ORDERED: ONDANSETRON PF 4 MG/2 ML VIAL. ONE (15:56)
[2018-11-26] MEDS ORDERED: fentaNYL PF VIAL 100 MCG/2 ML VIAL ONE ×2 (15:56→18:19)
[2018-11-26 16:04] LABS: BASO % 0 % (0-3); EOS % 0 % (0-3); LYMPH # 1.2 x10^3/uL (1.0-4.8); LYMPH % 10 % (24-48); MEAN CORPUSCULAR HEMOGLOBIN 33 pg (25-35); MEAN CORPUSCULAR HGB CONC 32 g/dL (31-37); MEAN CORPUSCULAR VOLUME 103 fL (79-100); MONO # 0.8 x10^3/uL (0.0-1.1); MONO % 7 % (0-9); NEUT # 9.8 x10^3uL (1.8-7.7); NEUT % 83 % (31-73); PLATELET COUNT 265 x10^3/uL (140-400); RED BLOOD COUNT 1.85 x10^6/uL (4.30-5.70); RED CELL DISTRIBUTION WIDTH 19.3 % (11.5-14.5); WHITE BLOOD COUNT 11.8 x10^3/uL (4.0-11.0)
[2018-11-26 16:09] LABS: HEMATOCRIT 19.1 % (39.0-53.0); HEMOGLOBIN 6.1 g/dL (13.0-17.5)
[2018-11-26] MEDS ORDERED: CIPROFLOXACIN 400MG PREMIX 200 ML IV ONE (16:30)
[2018-11-26] MEDS ORDERED: ALBUMIN HUMAN 5% 500 ML IV ONE (16:57)
[2018-11-26] MEDS ORDERED: IOHEXOL 300 MG/ML 100ML VIAL. ONE ×2 (17:54→17:58)
[2018-11-26] MEDS ORDERED: ROCURONIUM 50 MG/5 ML VIAL. ONE (18:14)
[2018-11-26] MEDS ORDERED: LIDOCAINE 1% PF 30 ML VIAL. ONE (18:33)
[2018-11-26] MEDS ORDERED: NEOSTIGMINE 10 MG/10 ML VIAL. ONE (18:39)
[2018-11-26] MEDS ORDERED: GLYCOPYRROLATE 1 MG/5 ML VIAL. ONE (18:40)
--- NOTE | 2018-11-26 20:02 | PDOC4 ---
OPERATIVE NOTE Date: Date: Nov 26, 2018 Pre-Op Diagnosis: gh clot retention Post-Op Diagnosis: same bladder rupture Procedure Performed: cysto, clot evacuation cystostomy repair, open SPT placement. Surgeon: Anesthesia Type: ga Blood Loss: 100ml Specimans Obtained: none Findings: posterior dome, intraperitoneal cystostomy huge clots removed from bladder and intraperitoneum. Complications: none evident QING TONG MD Nov 26, 2018 20:02
[2018-11-26] MEDS ORDERED: fentaNYL PF VIAL 100 MCG/2 ML VIAL IV PRN ×2 (20:45)
[2018-11-26] MEDS ORDERED: MORPHINE SULFATE 2 MG/ML VIAL. IV PRN (20:45)
[2018-11-26] MEDS ORDERED: PROCHLORPERAZINE 10 MG/2 ML VIAL. IV PRN (20:45)
[2018-11-26] MEDS ORDERED: HYDROmorphone 2 MG/ML VIAL IV PRN (20:45)
[2018-11-26] MEDS ORDERED: LIDOCAINE 1% PF 2 ML VIAL. ID PRN (20:45)
[2018-11-26] MEDS: CITALOPRAM 10 MG TABLET. PO SCH (21:00)
[2018-11-26] MEDS: FENOFIBRATE,MICRONIZED 134 MG CAPSULE PO SCH (21:00)
[2018-11-26] MEDS: SIMVASTATIN 40 MG TABLET. PO SCH (21:00)
[2018-11-26] MEDS ORDERED: IV RINGERS,LACTATED 1000ML 1,000 ML IV SCH (21:00)
[2018-11-26 21:42] LABS: HEMATOCRIT 33.1 % (39.0-53.0); RED BLOOD COUNT 3.46 x10^6/uL (4.30-5.70); RED CELL DISTRIBUTION WIDTH 17.3 % (11.5-14.5); WHITE BLOOD COUNT 8.8 x10^3/uL (4.0-11.0)
[2018-11-26 21:52] LABS: PROTHROMBIN TIME PATIENT 15.9 SEC (11.7-14.0)
[2018-11-26 21:57] LABS: CALCIUM 7.4 mg/dL (8.5-10.1); CREATININE 1.8 mg/dL (0.7-1.3); GFR 37.4; POTASSIUM 4.3 mmol/L (3.5-5.1)
[2018-11-27] VITALS (19 sets, daily range): BP systolic 86–131; BP diastolic 39–73
[2018-11-27] MEDS: fentaNYL PF VIAL 100 MCG/2 ML VIAL IV PRN ×7 (01:18→17:08)
--- NOTE | 2018-11-27 03:46 | RAD ---
Single view chest dated 11/26/2018. Comparison made to 10/03/2018. Clinical indication: Central line placement. FINDINGS: Supine portable exam performed. Normal placement of right internal jugular catheter with tip projected to the level the right atrium. Heart size is mildly enlarged, stable. There is patchy perihilar consolidation, left greater than right, increased from prior exam. No pneumothorax. No significant pleural effusion. IMPRESSION: 1. Right-sided central catheter with no evidence of pneumothorax. 2. Perihilar consolidation, new from prior study. This could be related to edema or developing pneumonia. Electronically signed by: Aayush Bowman MD (11/27/2018 3:42 AM) [facility]
[2018-11-27 06:24] LABS: HEMATOCRIT 31.4 % (39.0-53.0); HEMOGLOBIN 10.6 g/dL (13.0-17.5); RED BLOOD COUNT 3.3 x10^6/uL (4.30-5.70); RED CELL DISTRIBUTION WIDTH 17.4 % (11.5-14.5); WHITE BLOOD COUNT 8.3 x10^3/uL (4.0-11.0)
[2018-11-27 06:42] LABS: CALCIUM 7.8 mg/dL (8.5-10.1); CREATININE 1.5 mg/dL (0.7-1.3); GFR 46.1
[2018-11-27] MEDS: PIOGLITAZONE 15 MG TABLET. PO SCH (09:22)
[2018-11-27] MEDS: OXYBUTYNIN CHLORIDE 5 MG TABLET PO SCH ×3 (09:22→18:20)
--- NOTE | 2018-11-27 11:27 | PDOC ---
Progress Note Subjective Subjective no acute events. No pain, GH has resolved Nevin reg diet wo nausea/vomiting. hgb 10.6 cr 1.5 ROS ROS No nausea No vomiting No pain No rash Vital Sign Vital Signs Vital Signs Date Time Temp Pulse Resp B/P (MAP) Pulse Ox O2 Delivery O2 Flow Rate FiO2 11/27/18 11:00 81 15 119/56 (77) 100 Nasal Cannula 2.0 11/27/18 08:00 98.4 98.4 Physical Exam PHYSICAL EXAM GENERAL: NAD, Alert HEENT: PERRL, OC/OP NECK: Supple, no JVD, no LN LUNGS: Clear HEART: S1S2, no gallop, no murmur ABD: Soft, NT, no organomegaly, no rebound EXT: No edema, no cyanosis CONFIDENTIAL INVESTIGATOR: Alert, oriented x 3, no focal neurologic deficit SKIN: No rash IV: ok Labs Lab Laboratory Tests Test 11/26/18 15:45 11/26/18 16:32 11/26/18 21:20 11/27/18 05:00 White Blood Count 11.8 x10^3/uL (4.0-11.0) 8.8 x10^3/uL (4.0-11.0) 8.3 x10^3/uL (4.0-11.0) Red Blood Count 1.85 x10^6/uL (4.30-5.70) 3.46 x10^6/uL (4.30-5.70) 3.30 x10^6/uL (4.30-5.70) Hemoglobin 6.1 g/dL (13.0-17.5) 11.0 g/dL (13.0-17.5) 10.6 g/dL (13.0-17.5) Hematocrit 19.1 % (39.0-53.0) 33.1 % (39.0-53.0) 31.4 % (39.0-53.0) Mean Corpuscular Volume 103 fL (79-100) 96 fL (79-100) 95 fL (79-100) Mean Corpuscular Hemoglobin 33 pg (25-35) 32 pg (25-35) 32 pg (25-35) Mean Corpuscular Hemoglobin Concent 32 g/dL (31-37) 33 g/dL (31-37) 34 g/dL (31-37) Red Cell Distribution Width 19.3 % (11.5-14.5) 17.3 % (11.5-14.5) 17.4 % (11.5-14.5) Platelet Count 265 x10^3/uL (140-400) 172 x10^3/uL (140-400) 174 x10^3/uL (140-400) Neutrophils (%) (Auto) 83 % (31-73) Lymphocytes (%) (Auto) 10 % (24-48) Monocytes (%) (Auto) 7 % (0-9) Eosinophils (%) (Auto) 0 % (0-3) Basophils (%) (Auto) 0 % (0-3) Neutrophils # (Auto) 9.8 x10^3uL (1.8-7.7) Lymphocytes # (Auto) 1.2 x10^3/uL (1.0-4.8) Monocytes # (Auto) 0.8 x10^3/uL (0.0-1.1) Eosinophils # (Auto) 0.0 x10^3/uL (0.0-0.7) Basophils # (Auto) 0.0 x10^3/uL (0.0-0.2) Glucose (Fingerstick) 147 mg/dL (70-99) Prothrombin Time 15.9 SEC (11.7-14.0) Prothromb Time International Ratio 1.3 (0.8-1.1) Activated Partial Thromboplast Time 35 SEC (24-38) Sodium Level 136 mmol/L (136-145) 139 mmol/L (136-145) Potassium Level 4.3 mmol/L (3.5-5.1) 4.0 mmol/L (3.5-5.1) Chloride Level 102 mmol/L (98-107) 105 mmol/L (98-107) Carbon Dioxide Level 22 mmol/L (21-32) 26 mmol/L (21-32) Anion Gap 12 (6-14) 8 (6-14) Blood Urea Nitrogen 28 mg/dL (8-26) 26 mg/dL (8-26) Creatinine 1.8 mg/dL (0.7-1.3) 1.5 mg/dL (0.7-1.3) Estimated GFR (Cockcroft-Gault) 37.4 46.1 Glucose Level 152 mg/dL (70-99) 140 mg/dL (70-99) Calcium Level 7.4 mg/dL (8.5-10.1) 7.8 mg/dL (8.5-10.1) Test 11/27/18 10:39 Glucose (Fingerstick) 127 mg/dL (70-99) Objective Assessment gh. clot retention bladder rupture s/p cystostomy repair Plan Plan of Care doing well. monitor uop, cr, AICHA output if VSN during the day, may transfer to floor. am labs QING TONG MD Nov 27, 2018 11:27
[2018-11-27] MEDS: IV NORMAL SALINE 1000ML BAG 1,000 ML IV SCH ×2 (11:39→21:30)
[2018-11-27] MEDS: cefTRIAXone IV Push 1 GM VIAL. IVP SCH (11:50)
--- NOTE | 2018-11-27 13:47 | OP ---
DATE OF SURGERY: 11/26/2018 PREOPERATIVE DIAGNOSES: 1. Gross hematuria. 2. Obstructing clots. 3. Anemia. 4. History of prostate cancer, status post radiation. 5. Radiation cystitis. POSTOPERATIVE DIAGNOSES: 1. Gross hematuria. 2. Obstructing clots. 3. Anemia. 4. History of prostate cancer, status post radiation. 5. Radiation cystitis. 6. Intraperitoneal bladder rupture. PROCEDURE: 1. Cystoscopy with clot evacuation. 2. Cystogram. 3. Cystostomy repair. 4. Suprapubic tube placement. PROCEDURE IN DETAIL: The patient was taken back to the procedure room and placed in the supine position per protocol. He was prepped and draped in usual sterile fashion in dorsal lithotomy position. Preexisting catheter was removed. Timeout was performed. SCDs were attached. IV antibiotics were administered. A 21-Swazi rigid cystoscope was then inserted into the bladder. There was no evidence of urethral abnormalities. There was no evidence of obstructing prostate. Upon entering the bladder, bladder was full of organized clot. I could not see any proper lumen. I tried to irrigate it several times with a needle to evaluate and I was unable to do so. At this point, decided to place a 26-Swazi resectoscope. Continuous flow for better irrigation. This was also not very helpful as the clot was organized and we could not break it up with the Ellik evacuator. I decided to place a 24-Swazi loop and I started resecting the clot. This was very tedious and very slow process as the clot was very difficult to remove even with the resectoscope. This continued for about an hour and hour and a half and then finally I visualized the mucosa of the bladder. There was no evidence of a bladder tumor. Clots were being evacuated with an Ellik evacuator. In the process, I noticed that a mild residual clot quickly disappeared from view and migrated superiorly towards the dome of the bladder. I followed up with the scope and noticed that there was a defect in the wall of the bladder consistent with a bladder rupture. At this point, my suspicion was that he had an extraperitoneal versus intraperitoneal bladder injury. A cystogram was performed, which showed intraperitoneal contrast. Family was notified and we decided to proceed with a cystostomy repair, clot evacuation. The patient was reprepped and draped. A Pfannenstiel incision was performed and subsequent layers were opened including peritoneum, got access into the bladder. This was done in a sagittal incision. A huge clot was removed from the bladder and a posterior dome bladder defect was noted. About a liter of clot was removed from that location. Bowel was kept away from the bladder and the bladder mucosa was closed with 3-0 Vicryl. The suprapubic tube was placed in the right lower quadrant of the bladder. The anterior portion of the bladder was closed in 2 layers with 3-0 Vicryl and 2-0 Vicryl. A leak test was performed, which showed integrity of the anastomosis. A drain was placed in the left lower quadrant. Fascia was closed with 0 Vicryl. Skin was closed with pretty. Occlusive dressing was applied to drain, suprapubic tube and incision. The patient was awakened, taken to the PACU in stable condition. Of note, he also had an 18-Swazi urethral Chappell. A suprapubic catheter was also 18-Swazi. The patient was in stable position. He was transfused 3 units during the procedure given that he was hypotensive, tachycardic with a hemoglobin of 6. Will transfer to ICU just overnight, monitor his progress and will transfer back to the floor once he stabilizes. QING TONG MD DR: CARLITOS/calin JOB#: [id number] / [id number] KATELYNN
--- NOTE | 2018-11-27 15:27 | NUR ---
FACULTY CO-SIGN I have reviewed the documentation by Fer Flores nursing home physician [facility].:
--- NOTE | 2018-11-27 16:42 | NUR ---
Pt transferred to 436 by bed. Report given to Jackie. MCCORMICK. Pt belongings taken with pt.
--- NOTE | 2018-11-27 16:59 | PN ---
DATE: 11/26/2018 ROOM: #261. SUBJECTIVE: I saw the patient earlier in the day this morning with nursing. Vital signs are stable. He is afebrile and remains tachycardic at the 120 level. He is not having as much suprapubic pain as what he was, feels nauseated off and on. Denies chest pain, shortness of breath, etc. OBJECTIVE: VITAL SIGNS: Stable. He is afebrile. He remains tachycardic. HEAD, EYES, EARS, NOSE AND THROAT: Unremarkable. NECK: Supple, without adenopathy or thyromegaly. LUNGS: Clear to auscultation and percussion. HEART: Tachycardic, regular without S3, S4, or murmur. ABDOMEN: Soft, nontender, without hepatosplenomegaly or mass. EXTREMITIES: Without cyanosis, clubbing, significant edema. NEUROLOGIC: He is intact. LABORATORY DATA: Hemoglobin this morning is 7.9, sugars are acceptable. Abdomen and pelvis CT scan showed what appeared to be high density within the urinary bladder, presumably representing hemorrhage and clot with surrounding inflammatory changes, recommended to correlate for underlying hemorrhagic cystitis that underlying urinary bladder mass lesions are not excluded on the basis of the exam. Chappell remains intact and his urine was bloody. IMPRESSION: 1. Ongoing hematuria with anemia and discussion as above. 2. Diabetes. 3. Tachycardia. PLAN: Neurology, Cardiology has been consulted. We will continue with present therapy and the patient will be monitored, managed and treated appropriately. MARCO WRIGHT MD DR: HERNANDEZ/calin JOB#: [id number] / [id number]
--- NOTE | 2018-11-27 17:00 | NUR ---
Pt was tx from ICU at 1640 by bed. VSS. Pt was oriented to visiting hours and call light. Bed in lowest position and locked. was paged about pain medicine. Orders received. Will continue to monitor.
[2018-11-27] MEDS ORDERED: OXYBUTYNIN CHLORIDE 5 MG TABLET PO SCH (18:15)
[2018-11-27] MEDS: HYDROcodone/APAP 10/325 1 TAB TABLET PO PRN (18:21)
[2018-11-27] MEDS: CITALOPRAM 10 MG TABLET. PO SCH (22:46)
[2018-11-27] MEDS: FENOFIBRATE,MICRONIZED 134 MG CAPSULE PO SCH (22:46)
[2018-11-27] MEDS: LACTOBACILLUS RHAMNOSUS GG 1 CAPSULE. PO SCH (22:46)
[2018-11-27] MEDS: SIMVASTATIN 40 MG TABLET. PO SCH (22:46)
--- NOTE | 2018-11-27 22:46 | PN ---
DATE: 11/27/2018 LOCATION: He is in room ICU 103. CHIEF COMPLAINT AND HISTORY OF PRESENT ILLNESS: The patient is awake, alert, trying to eat some breakfast, feels like he feels overall much better than he has after surgery yesterday to repair of perforated bladder. He has no further gross hematuria at this point, has expected abdominal tenderness from surgery. OBJECTIVE: VITAL SIGNS: Stable. He is afebrile. His tachycardia has resolved after surgery with pulse down in the 80s currently. VITAL SIGNS: He is afebrile. Hemoglobin this morning is 10.6. CHEST: Clear. HEART: Regular. ABDOMEN: Soft and benign. EXTREMITIES: Without cyanosis, clubbing or edema. LABORATORY DATA: Creatinine is down to 1.5 this morning and will be repeated tomorrow. Sugars have been decent. IMPRESSION: Gross hematuria with clotting and bladder outlet obstruction due to bladder rupture, status post repair. Additional problems: Coronary artery disease, diabetes, recent hip fracture, hypertension, prostate cancer. PLAN: Continue present care in ICU. Urology help appreciated. We will continue to follow and do supportive care. MARCO WRIGHT MD DR: HERNANDEZ/calin JOB#: [id number] / [id number]
[2018-11-28 03:00] VITALS: BP 128/53
[2018-11-28 06:07] LABS: BASO % 0 % (0-3); EOS # 0.1 x10^3/uL (0.0-0.7); EOS % 2 % (0-3); HEMATOCRIT 28.5 % (39.0-53.0); HEMOGLOBIN 9.6 g/dL (13.0-17.5); LYMPH # 0.8 x10^3/uL (1.0-4.8); LYMPH % 12 % (24-48); MEAN CORPUSCULAR HEMOGLOBIN 32 pg (25-35); MEAN CORPUSCULAR HGB CONC 34 g/dL (31-37); MEAN CORPUSCULAR VOLUME 96 fL (79-100); MONO # 0.4 x10^3/uL (0.0-1.1); MONO % 7 % (0-9); NEUT # 5.2 x10^3uL (1.8-7.7); NEUT % 79 % (31-73); PLATELET COUNT 157 x10^3/uL (140-400); RED BLOOD COUNT 2.98 x10^6/uL (4.30-5.70); RED CELL DISTRIBUTION WIDTH 17.6 % (11.5-14.5); WHITE BLOOD COUNT 6.5 x10^3/uL (4.0-11.0)
[2018-11-28 06:38] LABS: CALCIUM 7.8 mg/dL (8.5-10.1); CREATININE 0.9 mg/dL (0.7-1.3); GFR 83.2; POTASSIUM 3.2 mmol/L (3.5-5.1)
[2018-11-28 07:00] VITALS: BP 141/64
[2018-11-28] MEDS: IV NORMAL SALINE 1000ML BAG 1,000 ML IV SCH ×3 (07:30→17:28)
[2018-11-28] MEDS: OXYBUTYNIN CHLORIDE 5 MG TABLET PO SCH ×3 (09:02→21:34)
[2018-11-28] MEDS: LACTOBACILLUS RHAMNOSUS GG 1 CAPSULE. PO SCH ×2 (09:02→21:34)
[2018-11-28] MEDS: PIOGLITAZONE 15 MG TABLET. PO SCH (09:02)
[2018-11-28] MEDS: HYDROcodone/APAP 10/325 1 TAB TABLET PO PRN ×2 (09:41→17:27)
[2018-11-28 11:00] VITALS: BP 112/52
[2018-11-28] MEDS ORDERED: POTASSIUM CHLORIDE 20 MEQ TABLET.ER. PO ONE (11:15)
[2018-11-28] MEDS: cefTRIAXone IV Push 1 GM VIAL. IVP SCH (14:01)
[2018-11-28 15:00] VITALS: BP 106/44
--- NOTE | 2018-11-28 15:25 | PDOC ---
Progress Note Subjective Subjective no acute events. Slow CBI, mostly clear. No abd pain, jesica reg diet. ROS ROS No nausea No vomiting No pain No rash Vital Sign Vital Signs Vital Signs Date Time Temp Pulse Resp B/P (MAP) Pulse Ox O2 Delivery O2 Flow Rate FiO2 11/28/18 11:00 98.1 80 18 112/52 (72) 91 Room Air 98.1 11/27/18 23:00 Physical Exam PHYSICAL EXAM GENERAL: NAD, Alert HEENT: PERRL, OC/OP NECK: Supple, no JVD, no LN LUNGS: Clear HEART: S1S2, no gallop, no murmur ABD: Soft, NT, no organomegaly, no rebound EXT: No edema, no cyanosis SUPERVISOR OPEN HEARTH STOCKYARD: Alert, oriented x 3, no focal neurologic deficit SKIN: No rash IV: ok spt, sp dressing is dry and intact Labs Lab Laboratory Tests Test 11/28/18 05:30 White Blood Count 6.5 x10^3/uL (4.0-11.0) Red Blood Count 2.98 x10^6/uL (4.30-5.70) Hemoglobin 9.6 g/dL (13.0-17.5) Hematocrit 28.5 % (39.0-53.0) Mean Corpuscular Volume 96 fL (79-100) Mean Corpuscular Hemoglobin 32 pg (25-35) Mean Corpuscular Hemoglobin Concent 34 g/dL (31-37) Red Cell Distribution Width 17.6 % (11.5-14.5) Platelet Count 157 x10^3/uL (140-400) Neutrophils (%) (Auto) 79 % (31-73) Lymphocytes (%) (Auto) 12 % (24-48) Monocytes (%) (Auto) 7 % (0-9) Eosinophils (%) (Auto) 2 % (0-3) Basophils (%) (Auto) 0 % (0-3) Neutrophils # (Auto) 5.2 x10^3uL (1.8-7.7) Lymphocytes # (Auto) 0.8 x10^3/uL (1.0-4.8) Monocytes # (Auto) 0.4 x10^3/uL (0.0-1.1) Eosinophils # (Auto) 0.1 x10^3/uL (0.0-0.7) Basophils # (Auto) 0.0 x10^3/uL (0.0-0.2) Sodium Level 139 mmol/L (136-145) Potassium Level 3.2 mmol/L (3.5-5.1) Chloride Level 103 mmol/L (98-107) Carbon Dioxide Level 26 mmol/L (21-32) Anion Gap 10 (6-14) Blood Urea Nitrogen 16 mg/dL (8-26) Creatinine 0.9 mg/dL (0.7-1.3) Estimated GFR (Cockcroft-Gault) 83.2 Glucose Level 104 mg/dL (70-99) Calcium Level 7.8 mg/dL (8.5-10.1) Micro gnr on Rocephin Objective Assessment gh. clot retention bladder rupture s/p cystostomy repair Plan Plan of Care doing well. hgb 10.6 cr0.9 christiano 30-ml. monitor uop, CHRISTIANO output Anticipate dc to SNF with SPT and cath for 2weeks once urine is clear off CBI. DC CHRISTIANO on discharge if output <50ml/daily. Sulphur fill cystogram in 2 weeks and fu in clinic. QING TONG MD Nov 28, 2018 15:25
[2018-11-28 19:00] VITALS: BP 128/46
[2018-11-28] MEDS: fentaNYL PF VIAL 100 MCG/2 ML VIAL IV PRN (21:33)
[2018-11-28] MEDS: FENOFIBRATE,MICRONIZED 134 MG CAPSULE PO SCH (21:33)
[2018-11-28] MEDS: CITALOPRAM 10 MG TABLET. PO SCH (21:33)
[2018-11-28] MEDS: SIMVASTATIN 40 MG TABLET. PO SCH (21:34)
[2018-11-28 23:00] VITALS: BP 172/65
[2018-11-29] VITALS (7 sets, daily range): BP systolic 124–171; BP diastolic 47–101
--- NOTE | 2018-11-29 01:37 | PN ---
DATE: 11/28/2018 LOCATION: He is in room 436. SUBJECTIVE: This episode has really scared the patient badly and he is anxious about the same. He does admit to feeling better other than surgical pain in his lower abdomen. OBJECTIVE: VITAL SIGNS: Stable. He is afebrile. The tachycardia present on admission has resolved. Hemoglobin is 9.6 this morning. Urine is a color of dilute pink lemonade. He has bladder irrigation still ongoing. Potassium this morning is 4.2 and will replace the same. Sugars have been good. IMPRESSION: 1. Gross hematuria with clots due to bladder perforation status post repair. 2. Ongoing bladder irrigation. 3. Diabetes with decent control. 4. Acute renal failure with resolution with BUN and creatinine down to 16 and 0.9 this morning. 5. Hypokalemia for replacement. 6. Anemia, stable. PLAN: Continue to follow blood counts, will replace potassium. We will order physical therapy, although to be ready when Urology clears for the same. MARCO WRIGHT MD DR: HERNANDEZ/calin JOB#: [id number] / [id number]
[2018-11-29] MEDS: IV NORMAL SALINE 1000ML BAG 1,000 ML IV SCH ×3 (02:39→21:22)
[2018-11-29] MEDS: HYDROcodone/APAP 10/325 1 TAB TABLET PO PRN ×2 (03:11→08:46)
[2018-11-29 05:45] LABS: BASO % 1 % (0-3); EOS # 0.4 x10^3/uL (0.0-0.7); EOS % 7 % (0-3); HEMATOCRIT 28.6 % (39.0-53.0); HEMOGLOBIN 9.5 g/dL (13.0-17.5); LYMPH # 0.7 x10^3/uL (1.0-4.8); LYMPH % 12 % (24-48); MEAN CORPUSCULAR HEMOGLOBIN 32 pg (25-35); MEAN CORPUSCULAR HGB CONC 33 g/dL (31-37); MEAN CORPUSCULAR VOLUME 96 fL (79-100); MONO # 0.5 x10^3/uL (0.0-1.1); MONO % 8 % (0-9); NEUT # 4.4 x10^3uL (1.8-7.7); NEUT % 73 % (31-73); PLATELET COUNT 172 x10^3/uL (140-400); RED BLOOD COUNT 2.97 x10^6/uL (4.30-5.70); RED CELL DISTRIBUTION WIDTH 17.3 % (11.5-14.5)
[2018-11-29 05:55] LABS: CREATININE 0.7 mg/dL (0.7-1.3); GFR 111.2; POTASSIUM 3.7 mmol/L (3.5-5.1)
[2018-11-29] MEDS: fentaNYL PF VIAL 100 MCG/2 ML VIAL IV PRN ×3 (06:14→15:07)
[2018-11-29] MEDS: LACTOBACILLUS RHAMNOSUS GG 1 CAPSULE. PO SCH ×2 (08:45→21:16)
[2018-11-29] MEDS: OXYBUTYNIN CHLORIDE 5 MG TABLET PO SCH ×3 (08:45→21:16)
[2018-11-29] MEDS: PIOGLITAZONE 15 MG TABLET. PO SCH (08:45)
--- NOTE | 2018-11-29 09:30 | PDOC ---
MAGUI WOOD FLAT CLOTHIER 11/29/18 0930: SUBJECTIVE Subjective Patient doing ok today. Has some soreness in his scrotum, but otherwise is tolerating catheter well. Has not seen any more blood come out in catheter, only yellow urine. OBJECTIVE Objective Physical Exam: General appearance: Alert and Oriented Head: Normocephalic, without obvious abnormality Eyes: conjunctivae/corneas clear. PERRL, EOM's intact. Fundi benign Lungs: Regular respirations, non labored breathing Abdomen: soft, non-tender. No masses, no organomegaly. SP dressing is dry and intact with AICHA tube in place draining sero-sanginous fluid, about 20 ml in bulb. Pelvic:+ Chappell catheter in place draining clear yellow urine, device in good working order. Vital Signs Vital Signs Date Time Temp Pulse Resp B/P (MAP) Pulse Ox O2 Delivery O2 Flow Rate FiO2 11/29/18 08:46 Nasal Cannula 2.0 11/29/18 07:20 Nasal Cannula 2.0 11/29/18 07:00 98.0 81 18 133/101 (112) 100 Nasal Cannula 2.0 98.0 11/29/18 06:44 Nasal Cannula 2.0 11/29/18 06:14 Nasal Cannula 2.0 11/29/18 04:11 Nasal Cannula 2.0 11/29/18 03:11 Nasal Cannula 2.0 11/29/18 03:00 97.5 76 18 142/58 (86) 100 Nasal Cannula 2.0 97.5 11/29/18 00:00 71 132/57 (82) Nasal Cannula 11/28/18 23:00 97.8 93 18 172/65 (100) 99 Nasal Cannula 2.0 97.8 11/28/18 21:33 Nasal Cannula 2.0 11/28/18 20:00 Nasal Cannula 2.0 11/28/18 19:00 98.5 79 18 128/46 (73) 100 Nasal Cannula 2.0 98.5 11/28/18 17:27 Room Air 11/28/18 15:00 98.6 82 18 106/44 (64) 96 Room Air 98.6 11/28/18 11:00 98.1 80 18 112/52 (72) 91 Room Air 98.1 11/28/18 09:41 Room Air I & O Intake and Output 11/29/18 06:59 Intake Total 2300 ml Output Total 3160 ml Balance -860 ml Intake Oral 1300 ml IV Total 1000 ml Output Urine Total 3150 ml Drainage Total 10 ml PHYSICAL EXAM Physical Exam Physical Exam: General appearance: Alert and Oriented Head: Normocephalic, without obvious abnormality Eyes: conjunctivae/corneas clear. PERRL, EOM's intact. Fundi benign Lungs: Regular respirations, non labored breathing Abdomen: soft, non-tender. No masses, no organomegaly. SP dressing is dry and intact with AICHA tube in place draining sero-sanginous fluid, about 20 ml in bulb. Pelvic:+ Chappell catheter in place draining clear yellow urine, device in good working order. ASSESSMENT/PLAN Assessment/Plan Pt is POD # 2 cystoscopy with clot evac, cystogram and cystostomy repair, SP tube placement by Dr. Rodrigues of [facility] on 11/26/18. Monitor AICHA output Urine is now clear, but patient will need to maintain Chappell catheter for two weeks to allow for further healing. Then we will have patient go to radiology for gravity fill cystogram in 2 weeks. Appointment for cystogram has been secured on Thursday the at 0900 at [facility]. He will follow up in clinic with Dr. Rodrigues after cystogram. Will coordinate with food sanitarian to secure appointment for him. DC AICHA on discharge or if output <50ml/daily, discussed with attending RN. Printed copy of op report for patient along with explained plan of care for the next couple of weeks. All questions answered. COMMENT Lab Laboratory Tests Test 11/28/18 21:43 11/29/18 05:30 11/29/18 07:28 Glucose (Fingerstick) 110 mg/dL (70-99) 89 mg/dL (70-99) White Blood Count 6.0 x10^3/uL (4.0-11.0) Red Blood Count 2.97 x10^6/uL (4.30-5.70) Hemoglobin 9.5 g/dL (13.0-17.5) Hematocrit 28.6 % (39.0-53.0) Mean Corpuscular Volume 96 fL (79-100) Mean Corpuscular Hemoglobin 32 pg (25-35) Mean Corpuscular Hemoglobin Concent 33 g/dL (31-37) Red Cell Distribution Width 17.3 % (11.5-14.5) Platelet Count 172 x10^3/uL (140-400) Neutrophils (%) (Auto) 73 % (31-73) Lymphocytes (%) (Auto) 12 % (24-48) Monocytes (%) (Auto) 8 % (0-9) Eosinophils (%) (Auto) 7 % (0-3) Basophils (%) (Auto) 1 % (0-3) Neutrophils # (Auto) 4.4 x10^3uL (1.8-7.7) Lymphocytes # (Auto) 0.7 x10^3/uL (1.0-4.8) Monocytes # (Auto) 0.5 x10^3/uL (0.0-1.1) Eosinophils # (Auto) 0.4 x10^3/uL (0.0-0.7) Basophils # (Auto) 0.0 x10^3/uL (0.0-0.2) Sodium Level 140 mmol/L (136-145) Potassium Level 3.7 mmol/L (3.5-5.1) Chloride Level 106 mmol/L (98-107) Carbon Dioxide Level 27 mmol/L (21-32) Anion Gap 7 (6-14) Blood Urea Nitrogen 11 mg/dL (8-26) Creatinine 0.7 mg/dL (0.7-1.3) Estimated GFR (Cockcroft-Gault) 111.2 Glucose Level 103 mg/dL (70-99) Calcium Level 8.0 mg/dL (8.5-10.1) QING RODRIGUES MD 11/29/18 1059: ASSESSMENT/PLAN Assessment/Plan agree w above MAGUI WOOD APRN Nov 29, 2018 09:30 QING RODRIGUES MD Nov 29, 2018 10:59
[2018-11-29] MEDS: cefTRIAXone IV Push 1 GM VIAL. IVP SCH (11:52)
--- NOTE | 2018-11-29 14:00 | NUR ---
OT in to work with pt, noticed a large we area on floor. Pt. in the chair, suprapubic cath dressing saturated. ANISHA Hoover notfied of leak, in to see pt. Abd drsg changed.
--- NOTE | 2018-11-29 16:29 | NUR ---
OLIVIA following. Discussed with RN. OLIVIA is familiar with pt from his last admission. OLIVIA met with pt to discuss discharge planning. Pt would like to go to [facility] again for SNU, OLIVIA checked with Sylvia from [facility] to determine if pt has any SNU days left, pt is in his copay days so would have to pay $170.50 a day at [facility]. OLIVIA met with pt to discuss this again, pt would like to go to [facility] but cannot afford the cost, OLIVIA discussed the option of Acute Rehab. Pt would like to think on this and agreed to have SW come back to discuss in the morning. RN notified. OLIVIA will continue to follow.
--- NOTE | 2018-11-29 17:17 | CARD ---
MR#: [id number] Date of Study: 11/29/2018 Ordering Physician: ELHAM LITTLEJOHN, Referring Physician: MARCO WRIGTH Tech: Sahra Virk JER APPROVED REPORT EXAM: Two-dimensional and M-mode echocardiogram with Doppler and color Doppler. Other Information Quality : Good INDICATION Cardiac Disease: CAD Tachycardia 2D DIMENSIONS RVDd2.3 (2.9-3.5cm)Left Atrium(2D)3.5 (1.6-4.0cm) IVSd1.2 (0.7-1.1cm)Aortic Root(2D)2.9 (2.0-3.7cm) LVDd4.8 (3.9-5.9cm)LVOT Diameter2.0 (1.8-2.4cm) PWd1.1 (0.7-1.1cm)LVDs2.6 (2.5-4.0cm) FS (%) 30.0 %SV82.5 ml LVEF(%)60.0 (>50%) Aortic Valve AoV Peak Arnold.158.8cm/sAoV VTI25.5cm AO Peak GR.10.1mmHgLVOT VTI 26.09cm AO Mean GR.4mmHgAVA (VTI)2.50cm2 AI P 1/2 [id number] Mitral Valve MV E Mphvhtgo32.5cm/sMV DECEL [id number] MV A Urollglm518.6cm/sE/A Ratio0.8 TDI Lateral E' P. V7.02cm/sMedial E' P. V7.53cm/s E/Lateral E'13.3E/Medial E'12.4 Tricuspid Valve TR P. Zpdevyon324no/sRAP [id number] TR Peak Gr.16lwSnKCNN54elEr Pulmonary Vein S1 Ivxiaktp10.0cm/sS2 Hnvojiqu84.56cm/s D2 Lwnxoaim69.6cm/s LEFT VENTRICLE The left ventricle is normal size. There is mild concentric left ventricular hypertrophy. The left ve ntricular systolic function is normal and the ejection fraction is within normal range. The Ejection Fraction is 55-60%. There is normal LV segmental wall motion. Transmitral Doppler flow pattern is Gra de I-abnormal relaxation pattern. RIGHT VENTRICLE The right ventricle is normal size. The right ventricular systolic function is normal. ATRIA The left atrium size is normal. The right atrium size is normal. The interatrial septum is intact wit h no evidence for an atrial septal defect or patent foramen ovale as noted on 2-D or Doppler imaging. AORTIC VALVE The aortic valve is calcified but opens well. Doppler and Color Flow revealed mild aortic regurgitati on. There is no significant aortic valvular stenosis. MITRAL VALVE The mitral valve is calcified but opens well. There is no evidence of mitral valve prolapse. There is no mitral valve stenosis. Doppler and Color-flow revealed trace mitral regurgitation. TRICUSPID VALVE The tricuspid valve is normal in structure and function. Doppler and Color Flow revealed trace tricus pid regurgitation. The PA pressure was estimated at 27 mmHg. There is no tricuspid valve stenosis. PULMONIC VALVE The pulmonic valve is not well visualized. Doppler and Color Flow revealed no pulmonic valvular regur gitation. There is no pulmonic valvular stenosis. GREAT VESSELS The aortic root is normal in size. The ascending aorta is normal in size. The IVC was not visualized. PERICARDIAL EFFUSION There is no evidence of significant pericardial effusion. Critical Notification Critical Value: No <Conclusion> The left ventricular systolic function is normal and the ejection fraction is within normal range. Th e Ejection Fraction is 55-60%. There is normal LV segmental wall motion. Doppler and Color Flow revealed mild aortic regurgitation. Signed by : Elham Littlejohn, Electronically Approved : 11/29/2018 17:16:59
[2018-11-29] MEDS: SIMVASTATIN 40 MG TABLET. PO SCH (21:15)
[2018-11-29] MEDS: FENOFIBRATE,MICRONIZED 134 MG CAPSULE PO SCH (21:15)
[2018-11-29] MEDS: CITALOPRAM 10 MG TABLET. PO SCH (21:16)
--- NOTE | 2018-11-29 21:36 | PDOC ---
GENERAL General: vss and afebrile. urine clear in packer. Hb stable at 9.5. sugars good. chest clear, heart regular, and abdomen with incisional tenderness. eval for snu at [facility] as his brother is there. VITAL SIGNS Vital Signs: Vital Signs Date Time Temp Pulse Resp B/P (MAP) Pulse Ox O2 Delivery O2 Flow Rate FiO2 11/29/18 19:00 98.5 76 18 154/47 (82) 96 Nasal Cannula 2.0 98.5 I & O I & O Intake and Output 11/29/18 07:00 Intake Total 2300 ml Output Total 3160 ml Balance -860 ml Intake Oral 1300 ml IV Total 1000 ml Output Urine Total 3150 ml Drainage Total 10 ml ALLERGIES Allergies: Allergies Coded Allergies Type Severity Reaction Last Updated Verified No Known Drug Allergies 11/26/18 No MEDS Medications: Current Medications Medications (Trade) Dose Ordered Sig/Corin Start Time Stop Time Status Last Admin Dose Admin Acetaminophen/ Hydrocodone Bitart (Lortab 10/325) 1 tab PRN Q6HRS PRN 11/27/18 18:00 11/29/18 08:46 1 TAB Albumin Human 500 ml @ As Directed STK-MED ONCE 11/26/18 16:57 11/26/18 16:58 DC Aspirin (Ecotrin) 81 mg DAILY 11/26/18 09:00 11/26/18 17:32 DC 11/26/18 09:17 81 MG Belladonna Alkaloids/Opium (B & O) 1 supp 1X ONCE 11/25/18 15:15 11/25/18 15:17 DC 11/25/18 15:33 1 SUPP Cefdinir (Omnicef) 300 mg BID 11/30/18 09:00 Ceftriaxone Sodium (Rocephin) 1 gm Q24H 11/27/18 12:00 11/29/18 13:44 DC 11/29/18 11:52 1 GM Ciprofloxacin/ Dextrose 200 ml @ 200 mls/hr 1X ONCE 11/26/18 16:30 11/26/18 17:29 DC 11/26/18 16:47 200 MLS/HR Citalopram Hydrobromide (CeleXA) 10 mg QHS 11/25/18 21:00 11/29/18 21:16 10 MG Dexamethasone Sodium Phosphate (Decadron) 20 mg STK-MED ONCE 11/26/18 15:56 11/26/18 15:57 DC Diazepam (Valium) 5 mg 1X ONCE 11/25/18 15:45 11/25/18 15:46 DC 11/25/18 16:06 5 MG Digoxin (Lanoxin) 500 mcg 1X ONCE 11/25/18 18:00 11/25/18 18:04 DC 11/25/18 18:02 500 MCG Famotidine (Pepcid Vial) 20 mg STK-MED ONCE 11/26/18 15:56 11/26/18 15:57 DC Fenofibrate (Lofibra) 134 mg QHS 11/25/18 21:00 11/29/18 21:15 134 MG Fentanyl Citrate (Fentanyl 2ml Vial) 50 mcg PRN Q5MIN PRN 11/26/18 20:45 11/27/18 03:00 DC 11/26/18 20:48 50 MCG Glycopyrrolate (Robinul) 1 mg STK-MED ONCE 11/26/18 18:40 11/26/18 18:41 DC Hydromorphone HCl (Dilaudid) 0.5 mg PRN Q10MIN PRN 11/26/18 20:45 11/27/18 03:00 DC Influenza Virus Vaccine (Afluria Trivalent 1306-4717 Syringe) 0.5 ml ONCE ONCE 11/26/18 09:00 11/26/18 09:01 DC 11/26/18 09:22 0.5 ML Info (CONTRAST GIVEN -- Rx MONITORING) 1 each PRN DAILY PRN 11/25/18 19:00 11/27/18 18:59 DC Iohexol (Omnipaque 300 Mg/ml) 100 ml STK-MED ONCE 11/26/18 17:58 11/26/18 17:59 DC 11/26/18 17:01 100 ML Lactobacillus Rhamnosus (Culturelle) 1 cap BID 11/27/18 21:00 11/29/18 21:16 1 CAP Lidocaine HCl (Glydo (Lidocaine) Jelly) 6 yogi STK-MED ONCE 11/26/18 03:00 11/26/18 13:10 DC Lidocaine HCl (Xylocaine 1% Pf 30ml Vial) 30 ml STK-MED ONCE 11/26/18 18:33 11/26/18 18:34 DC 11/26/18 17:01 10 ML Lidocaine HCl (Xylocaine-Mpf 1% 2ml Vial) 2 ml PRN 1X PRN 11/26/18 20:45 11/27/18 03:00 DC Lisinopril (Prinivil) 5 mg DAILY 11/26/18 09:00 11/26/18 17:32 DC 11/26/18 09:19 5 MG Lorazepam (Ativan) 0.5 mg PRN Q6HRS PRN 11/25/18 18:30 11/25/18 19:22 0.5 MG Midazolam HCl (Versed) 2 mg STK-MED ONCE 11/26/18 15:56 11/26/18 15:57 DC Morphine Sulfate (Morphine Sulfate) 1 mg PRN Q10MIN PRN 11/26/18 20:45 11/27/18 03:00 DC Neostigmine Methylsulfate (Bloxiverz) 10 mg STK-MED ONCE 11/26/18 18:39 11/26/18 18:40 DC Ondansetron HCl (Zofran) 4 mg STK-MED ONCE 11/26/18 15:56 11/26/18 15:57 DC Oxybutynin Chloride (Ditropan) 5 mg [id number] 11/27/18 18:04 11/29/18 21:16 5 MG Phenazopyridine HCl (Pyridium) 200 mg PRN TID PRN 11/26/18 09:45 Pioglitazone HCl (Actos) 30 mg DAILY 11/26/18 09:00 11/29/18 08:45 30 MG Potassium Chloride (Klor-Con) 40 meq 1X ONCE 11/28/18 11:15 11/28/18 11:18 DC 11/28/18 11:54 40 MEQ Prochlorperazine Edisylate (Compazine) 5 mg PACU PRN PRN 11/26/18 20:45 11/27/18 03:00 DC Ringer's Solution 1,000 ml @ 30 mls/hr Q24H 11/26/18 21:00 11/27/18 03:00 DC 11/26/18 20:48 30 MLS/HR Rocuronium Encinal (Zemuron) 50 mg STK-MED ONCE 11/26/18 18:14 11/26/18 18:15 DC Simvastatin (Zocor) 40 mg QHS 11/25/18 21:00 11/29/18 21:15 40 MG Sodium Chloride 1,000 ml @ 100 mls/hr Q10H 11/27/18 11:30 11/29/18 21:22 100 MLS/HR LAB Lab: Laboratory Tests Test 11/28/18 21:43 11/29/18 05:30 11/29/18 07:28 11/29/18 11:44 Glucose (Fingerstick) 110 mg/dL (70-99) 89 mg/dL (70-99) 100 mg/dL (70-99) White Blood Count 6.0 x10^3/uL (4.0-11.0) Red Blood Count 2.97 x10^6/uL (4.30-5.70) Hemoglobin 9.5 g/dL (13.0-17.5) Hematocrit 28.6 % (39.0-53.0) Mean Corpuscular Volume 96 fL (79-100) Mean Corpuscular Hemoglobin 32 pg (25-35) Mean Corpuscular Hemoglobin Concent 33 g/dL (31-37) Red Cell Distribution Width 17.3 % (11.5-14.5) Platelet Count 172 x10^3/uL (140-400) Neutrophils (%) (Auto) 73 % (31-73) Lymphocytes (%) (Auto) 12 % (24-48) Monocytes (%) (Auto) 8 % (0-9) Eosinophils (%) (Auto) 7 % (0-3) Basophils (%) (Auto) 1 % (0-3) Neutrophils # (Auto) 4.4 x10^3uL (1.8-7.7) Lymphocytes # (Auto) 0.7 x10^3/uL (1.0-4.8) Monocytes # (Auto) 0.5 x10^3/uL (0.0-1.1) Eosinophils # (Auto) 0.4 x10^3/uL (0.0-0.7) Basophils # (Auto) 0.0 x10^3/uL (0.0-0.2) Sodium Level 140 mmol/L (136-145) Potassium Level 3.7 mmol/L (3.5-5.1) Chloride Level 106 mmol/L (98-107) Carbon Dioxide Level 27 mmol/L (21-32) Anion Gap 7 (6-14) Blood Urea Nitrogen 11 mg/dL (8-26) Creatinine 0.7 mg/dL (0.7-1.3) Estimated GFR (Cockcroft-Gault) 111.2 Glucose Level 103 mg/dL (70-99) Calcium Level 8.0 mg/dL (8.5-10.1) Test 11/29/18 16:27 11/29/18 20:41 Glucose (Fingerstick) 78 mg/dL (70-99) 85 mg/dL (70-99) MARCO WRIGHT MD Nov 29, 2018 21:36
[2018-11-30 04:00] VITALS: BP 151/64
[2018-11-30 07:00] VITALS: BP 140/64
[2018-11-30] MEDS: IV NORMAL SALINE 1000ML BAG 1,000 ML IV SCH ×2 (07:13→18:33)
[2018-11-30] MEDS ORDERED: MAGNESIUM HYDROXIDE 2,400 MG/30 ML ORAL.SUSP. PO PRN (08:15)
[2018-11-30] MEDS: PIOGLITAZONE 15 MG TABLET. PO SCH (08:29)
[2018-11-30] MEDS: OXYBUTYNIN CHLORIDE 5 MG TABLET PO SCH ×3 (08:29→21:49)
[2018-11-30] MEDS: LACTOBACILLUS RHAMNOSUS GG 1 CAPSULE. PO SCH ×2 (08:29→21:50)
[2018-11-30] MEDS: CEFDINIR 300 MG CAPSULE PO SCH ×2 (08:29→21:49)
[2018-11-30] MEDS: HYDROcodone/APAP 10/325 1 TAB TABLET PO PRN ×3 (08:29→21:53)
--- NOTE | 2018-11-30 09:13 | PDOC ---
MAGUI WOOD LABOR EXPEDITER 11/30/18 0913: SUBJECTIVE Subjective Pt doing well, no pain. Urine is no longer red, but a few clots continue to come out intermittently. Feeling good overall. OBJECTIVE Objective Physical Exam: General appearance: Alert and Oriented Head: Normocephalic, without obvious abnormality Eyes: conjunctivae/corneas clear. PERRL, EOM's intact. Fundi benign Back: negative, no CVA pain bilat. Lungs: Regular respirations, non labored breathing Abdomen: soft, non-tender. Lower abd surgical wound secured with pretty. No drainage or signs or symptoms of infection. SP tube lower right side of abdomen with CBI running in at a slow drip. Both wounds are covered with split guaze and abd pad and secured with medipore tape. Pelvic: Chappell catheter in place draining yellow urine with occasional small red clots (less than pea-sized). Device in good working order. Vital Signs Vital Signs Date Time Temp Pulse Resp B/P (MAP) Pulse Ox O2 Delivery O2 Flow Rate FiO2 11/30/18 08:29 Room Air 11/30/18 07:00 97.9 81 16 140/64 (89) 96 Room Air 97.9 11/30/18 04:00 98.5 85 18 151/64 (93) 92 Nasal Cannula 2.0 98.5 11/29/18 23:00 97.9 88 18 171/64 (99) 96 Nasal Cannula 2.0 97.9 11/29/18 19:45 Room Air 11/29/18 19:00 98.5 76 18 154/47 (82) 96 Nasal Cannula 2.0 98.5 11/29/18 15:39 Nasal Cannula 2.0 11/29/18 15:07 Nasal Cannula 2.0 11/29/18 15:00 98.1 80 18 141/62 (88) 96 Nasal Cannula 2.0 98.1 11/29/18 11:52 Nasal Cannula 2.0 11/29/18 11:00 98.3 63 18 124/55 (78) 99 Nasal Cannula 2.0 98.3 I & O Intake and Output 11/30/18 06:59 Intake Total 2460 ml Output Total 6050 ml Balance -3590 ml Intake Oral 1060 ml IV Total 700 ml Other 700 ml Output Urine Total 5850 ml Drainage Total 200 ml PHYSICAL EXAM Physical Exam Physical Exam: General appearance: Alert and Oriented Head: Normocephalic, without obvious abnormality Eyes: conjunctivae/corneas clear. PERRL, EOM's intact. Fundi benign Back: negative, no CVA pain bilat. Lungs: Regular respirations, non labored breathing Abdomen: soft, non-tender. Lower abd surgical wound secured with rpetty. No drainage or signs or symptoms of infection. SP tube lower right side of abdomen with CBI running in at a slow drip. Both wounds are covered with split guaze and abd pad and secured with medipore tape. Pelvic: Chappell catheter in place draining yellow urine with occasional small red clots (less than pea-sized). Device in good working order. ASSESSMENT/PLAN Assessment/Plan Appointment secured for cystogram at [facility] Radiology 0900 on 12/13/[address] Rodrigues after cystogram; appointment secured with Dr. Rodrigues at [facility] location 12/15/18 at 250 pm. Card outlining both appointments has been taped to front of chart. CBI continued at low speed all morning with no clot return. Urine is clear at 1300 today. CBI port capped off. Continue indwelling Chappell catheter. More likely than not he will have to discharge with this device in place since it needs to stay in place for two weeks after the surgery. I did discuss this with the patient. Will follow. COMMENT Lab Laboratory Tests Test 11/29/18 11:44 11/29/18 16:27 11/29/18 20:41 11/30/18 07:42 Glucose (Fingerstick) 100 mg/dL (70-99) 78 mg/dL (70-99) 85 mg/dL (70-99) 79 mg/dL (70-99) JOSSELYN HURTADO MD 12/01/18 0822: ASSESSMENT/PLAN Assessment/Plan Have reviewed case and agree with Plan outlined by Arcenio Wood. Pt doing well now w SP Tube. MAGUI WOOD APRN Nov 30, 2018 09:13 JOSSELYN HURTADO MD Dec 01, 2018 08:22
--- NOTE | 2018-11-30 10:06 | PN ---
DATE: 11/30/2018 LOCATION: He is in room 436. SUBJECTIVE: The patient is awake, alert, still has a fair amount of abdominal pain incisionally particularly with cough. OBJECTIVE: VITAL SIGNS: Stable. He is afebrile. Urine is clear. CHEST: Clear. HEART: Regular. ABDOMEN: Benign. LABORATORY DATA: Blood sugars have been good. IMPRESSION: 1. Massive urinary bleed due to bladder perforation of uncertain etiology. 2. Status post repair of the same. 3. Indwelling Chappell with plans on this remaining for at least the next couple of weeks. 4. Diabetes. 5. Anemia, stable. PLAN: Continue present care. We will put an evaluation for fci today. Otherwise, the same with likely discharge in the next day or so pending Urology approval. MARCO WRIGHT MD DR: HERNANDEZ/calin JOB#: [id number] / [id number]
[2018-11-30 11:00] VITALS: BP_SYST 105; BP_SYST 147; BP_DIAS 62; BP_DIAS 73
--- NOTE | 2018-11-30 13:20 | NUR ---
OLIVIA following. Discussed with RN. Sylvia from [facility] advised OLIVIA that [facility] will allow pt to come and not charge for copay days, due to his brother living there and the family connection. Sylvia advised this is a one off situation. Sylvia met with pt to discuss, pt is aware and wants to go to [facility] for SNU. SW to fax referral. RN notified.
[2018-11-30 15:00] VITALS: BP 114/60
[2018-11-30 19:20] VITALS: BP 143/63
[2018-11-30] MEDS: FENOFIBRATE,MICRONIZED 134 MG CAPSULE PO SCH (21:49)
[2018-11-30] MEDS: SIMVASTATIN 40 MG TABLET. PO SCH (21:49)
[2018-11-30] MEDS: CITALOPRAM 10 MG TABLET. PO SCH (21:50)
[2018-11-30 23:50] VITALS: BP 163/71
[2018-12-01] MEDS: IV NORMAL SALINE 1000ML BAG 1,000 ML IV SCH ×2 (03:00→10:51)
[2018-12-01 03:41] VITALS: BP 152/70
[2018-12-01 07:00] VITALS: BP 155/64
[2018-12-01] MEDS: OXYBUTYNIN CHLORIDE 5 MG TABLET PO SCH ×2 (08:51→13:07)
[2018-12-01] MEDS ORDERED: CEFD300C PO (08:51)
[2018-12-01] MEDS: LACTOBACILLUS RHAMNOSUS GG 1 CAPSULE. PO SCH (08:51)
[2018-12-01] MEDS: CEFDINIR 300 MG CAPSULE PO SCH (08:51)
[2018-12-01] MEDS: PIOGLITAZONE 15 MG TABLET. PO SCH (08:51)
--- NOTE | 2018-12-01 08:53 | SNU/HH DC ---
DISCHARGE ORDERS DISCHARGE INFORMATION: DISCHARGE DATE: Dec 01, 2018 FINAL DIAGNOSIS Problems Medical Problems: (1) Acute urinary retention Status: Acute CONDITION ON DISCHARGE: Stable CODE STATUS: Code Status: Full DETENTION: SNF STAY <30 DAYS: Yes HOSPICE: HOSPICE: No HOSPICE EVAL & TREAT: No LTAC: ADMIT TO LTAC: No POST DISCHARGE ORDERS: ACTIVITY ORDERS: Activity as tolerated WEIGHT BEARING STATUS: No restrictions DIET AFTER DISCHARGE: ADA WOUND/INCISION CARE: Change dressing CHECKS AFTER DISCHARGE: CHECKS AFTER DISCHARGE: Check blood press - daily, Check blood sugar, ac/hs TREATMENT/EQUIPMENT ORDERS: ADAPTIVE EQUIPMENT NEEDED: None Physical Therapy For: Evalulation/Treatment Occupational Therapy For: Evaluation/Treatment DISCHARGE MEDICATIONS: Home Meds Active Scripts Cefdinir (CEFDINIR) 300 Mg Capsule, 300 MG PO BID for infection for 7 Days, #14 CAP Prov:MARCO WRIGHT MD 12/01/18 Polyethylene Glycol 3350 (POLYETHYLENE GLYCOL 3350) 17 Gm Powd.pack, 17 GM PO PRN DAILY PRN for CONSTIPATION (1st Choice) for 30 Days, #30 PKT Prov:MARCO WRIGHT MD 10/07/18 Hydrocodone Bit/Acetaminophen (HYDROCODONE-APAP 7.5-325 ) 1 Tab Tablet, 1 TAB PO PRN Q4HRS PRN for PAIN for 30 Days, #120 TAB Prov:MARCO WRIGHT MD 10/07/18 Hydrocodone Bit/Acetaminophen (HYDROCODONE-APAP 7.5-325 ) 1 Tab Tablet, 2 TAB PO PRN Q4HRS PRN for PAIN for 30 Days, #120 TAB Prov:MARCO WRIGHT MD 10/07/18 Reported Medications Citalopram Hydrobromide (CITALOPRAM HBR) 10 Mg Tablet, 10 MG PO QHS for , TAB 11/25/18 Fenofibrate Nanocrystallized (FENOFIBRATE) 145 Mg Tablet, 145 MG PO QHS for , TAB 11/25/18 Aspirin (ASPIR 81) 81 Mg Tablet.dr, 81 MG PO DAILY 10/14/13 Simvastatin (ZOCOR) 40 Mg Tablet, 40 MG PO QHS 09/10/13 Pioglitazone Hcl (ACTOS) 30 Mg Tablet, 30 MG PO DAILY 09/09/13 Ramipril (RAMIPRIL) 2.5 Mg Capsule, 2.5 MG PO DAILY 09/09/13 MARCO WRIGHT MD Dec 01, 2018 08:53
[2018-12-01 11:00] VITALS: BP 137/75
--- NOTE | 2018-12-01 12:24 | NUR ---
SW following. Discussed with RN, RN waiting to find out if pt can discharge to [facility] today. SW faxed discharge paperwork, awaiting confirmation in order to determine transportation time. SW will continue to follow.
--- NOTE | 2018-12-01 13:22 | NUR ---
SW following. Pt will be transported to [facility] between [id number]. RN notified.
[2018-12-01 15:00] VITALS: BP 142/55
--- NOTE | 2018-12-01 16:25 | NUR ---
Discharge Note: [facility] Discharge instructions and discharge home medications reviewed with Other facility and a copy given. All questions have been answered and understanding verbalized. Report given to ADAM Taylor at [facility]. The following instructions and handouts were given: information about medications, tests, plan of care, medications, upcoming appointments with Dr. Rodrigues, AICHA drain info and packer catheter information. Discontinued lines and drains: Right IJ TL removed, catheter tip intact, pressure dressing applied to be removed in 24 hours. [facility] tabeler via Wheel[facility].
--- NOTE | 2018-12-01 18:40 | DS ---
DATE OF DISCHARGE: 12/01/2018 PRIMARY DIAGNOSIS: Spontaneous bladder rupture, hematuria. ADDITIONAL DIAGNOSES: Anemia requiring transfusion, diabetes, history of cancer of the prostate, atherosclerotic heart disease, acute renal failure. CHIEF COMPLAINT AND HISTORY OF PRESENT ILLNESS: This is a 73-year-old male admitted on the day of admission through the Emergency Room with hematuria, clotting and bladder outlet obstruction. SUMMARY OF STAY: The patient was admitted, treated with 3-way catheter and irrigation, continued to have problems with obstruction of the catheter and had a lot of abdominal pain. He was eventually taken for surgery, was found to have a bladder perforation and an open closure of perforation with evacuation of clots was done. His urine then behind that cleared. It was felt by Urology he needed to be on the catheter for at least 2 weeks and at that point, come back with consideration of the bladder filled to make sure that it was competent to hold fluid and then remove the catheter may be at that point in time. It was felt he could go to intermediate at the time of discharge and was done so. His discharge hemoglobin was 9.5, his low was 6.1 during the stay. Initially, he had some acute renal failure with a creatinine of 1.8, it was down to 0.7 by the time of discharge. DISPOSITION: The patient is discharged to intermediate. DIET: ADA diet. ACTIVITY: As tolerated. We will continue to follow him there. DISCHARGE MEDICATIONS: See med rec for medicines. MARCO WRIGHT MD DR: HERNANDEZ/calin JOB#: [id number] / [id number]
--- NOTE | 2018-12-08 18:16 | HP ---
ADMIT DATE: 11/25/2018 CHIEF COMPLAINT AND HISTORY OF PRESENT ILLNESS: This 73-year-old white male seen with his nephew in the office on the morning of admission with the onset of hematuria. The patient got up at 5:00 a.m., had normal urination, went back and later in the morning had blood. He was having troubles emptying his bladder, suggesting clotting and was passing some small clots. He was sent to the Emergency Room where evaluation was undertaken showing obstructive hematuria and the patient was admitted for the same. PAST MEDICAL HISTORY: Well documented in old charts, includes atherosclerotic heart disease with a prior stenting; diabetes, which has been well controlled; carcinoma of the prostate; depression; hyperlipidemia. PAST SURGICAL HISTORY: He has had a prior hip fracture repair, adenoidectomy, prior radiation treatment for prostate cancer. MEDICATIONS: Brought with the patient, listed on the computer and have been addressed. ALLERGIES: He has no known drug allergies. SOCIAL HISTORY: He is single, nonsmoker, nondrinker, does not abuse drugs. FAMILY HISTORY: Positive for longevity. REVIEW OF SYSTEMS: As mentioned above. He denies any fevers, chills, sweats, dysuria, nocturia, urgency, frequency leading up to this. PHYSICAL EXAMINATION: GENERAL: He is a well-developed, well-nourished white male, who appears moderately distressed and is anxious about all this going on. VITAL SIGNS: Stable. He is afebrile. HEAD, EYES, EARS, NOSE AND THROAT: Unremarkable. NECK: Supple, without adenopathy or thyromegaly. CHEST: Clear to auscultation and percussion. HEART: Regular rate and rhythm without S3, S4, or murmur. ABDOMEN: Soft, nontender, without hepatosplenomegaly or masses. He does have suprapubic tenderness and dullness to percussion suggestive of bladder distention. EXTREMITIES: Without cyanosis, clubbing, edema. NEUROLOGIC: He is intact. Initial hemoglobin is 9.9. EKG shows sinus tachycardia with a rate of 133. IMPRESSION: 1. Hematuria with clotting and bladder outlet obstruction. 2. Anemia. 3. Other problems listed above. PLAN: The patient has been admitted. Catheterization has been obtained. Urological consultation is underway. A 3-way catheter with bladder irrigation is ongoing and the patient will be monitored, managed and treated appropriately. MARCO WRIGHT MD DR: Judy JOB#: [id number] / [id number]
== END 2018-12-01 16:25 | DRG 853 ==
LOC: ER 12:18 → 6 SOUTH 14:27 → 2 SOUTH 17:43 → 1 WEST ICU 11-26 16:45 → 4 NORTH 11-27 16:53
PROVIDERS: ADMIT Family Medicine; ATTEND Family Medicine
PROC: 0TQB0ZZ Repair Bladder, Open Approach (ICD-10-PCS; 2018-11-26)
PROC: 30233N1 Transfusion of Nonautologous Red Blood Cells into Peripheral Vein, Percutaneous Approach (ICD-10-PCS; 2018-11-26)
PROC: 0T9B30Z Drainage of Bladder with Drainage Device, Percutaneous Approach (ICD-10-PCS; 2018-11-26)
PROC: 3C1ZX8Z Irrigation of Indwelling Device using Irrigating Substance, External Approach (ICD-10-PCS; 2018-11-26)
PROC: 0TCB7ZZ Extirpation of Matter from Bladder, Via Natural or Artificial Opening (ICD-10-PCS; 2018-11-26)
PROC: 0TCB8ZZ Extirpation of Matter from Bladder, Via Natural or Artificial Opening Endoscopic (ICD-10-PCS; principal; 2018-11-26 15:50)
DX: A41.9 Sepsis, unspecified organism (principal); N17.1 Acute kidney failure with acute cortical necrosis; N30.41 Irradiation cystitis with hematuria; N32.89 Other specified disorders of bladder; N32.0 Bladder-neck obstruction; D50.0 Iron deficiency anemia secondary to blood loss (chronic); E78.00 Pure hypercholesterolemia, unspecified; E11.9 Type 2 diabetes mellitus without complications; F32.9 Major depressive disorder, single episode, unspecified; I95.9 Hypotension, unspecified; F41.9 Anxiety disorder, unspecified; M19.90 Unspecified osteoarthritis, unspecified site; I25.10 Atherosclerotic heart disease of native coronary artery without angina pectoris; I10 Essential (primary) hypertension; E78.5 Hyperlipidemia, unspecified; E87.6 Hypokalemia; Y84.2 Radiological procedure and radiotherapy as the cause of abnormal reaction of the patient, or of later complication, without mention of misadventure at the time of the procedure; Y92.89 Other specified places as the place of occurrence of the external cause; Z92.3 Personal history of irradiation; Z85.46 Personal history of malignant neoplasm of prostate; Z82.49 Family history of ischemic heart disease and other diseases of the circulatory system; Z95.5 Presence of coronary angioplasty implant and graft
CPT/HCPCS: 36415; 51702; 71045; 74177; 74430; 80048; 80053; 81001; 82962; 84443; 84484; 85007; 85014; 85018; 85025; 85027; 85610; 85730; 86850; 86900; 86901; 86920; 87086; 87186; 90471; 90756; 93005; 93306; 96361; 96374; A7015; J0696; J0744; J1100; J1160; J2060; J2250; J2405; J2710; J3010; J3490; J7030; J7040; J7120; P9016; P9045; Q9967; 97110; 97116; 97530; 97535; 99285-25; Q2035

== ENCOUNTER 2018-12-04 21:05 | Emergency (ER) | payer MEDICARE, BC ==
[~2018-12-04] VITALS: Ht 172.7 cm; Wt 79.4 kg
[~2018-12-04 21:05] MED LIST changes: +CEFD300C PO; +CITA10TA4 PO; +FENO145T30 PO
[2018-12-04 22:33] LABS: BASO % 0 % (0-3); EOS # 0.7 x10^3/uL (0.0-0.7); EOS % 12 % (0-3); HEMATOCRIT 32.4 % (39.0-53.0); HEMOGLOBIN 10.5 g/dL (13.0-17.5); LYMPH # 1.3 x10^3/uL (1.0-4.8); LYMPH % 22 % (24-48); MEAN CORPUSCULAR HEMOGLOBIN 31 pg (25-35); MEAN CORPUSCULAR HGB CONC 32 g/dL (31-37); MEAN CORPUSCULAR VOLUME 96 fL (79-100); MONO # 0.6 x10^3/uL (0.0-1.1); MONO % 10 % (0-9); NEUT # 3.2 x10^3uL (1.8-7.7); NEUT % 56 % (31-73); PLATELET COUNT 399 x10^3/uL (140-400); RED BLOOD COUNT 3.36 x10^6/uL (4.30-5.70); RED CELL DISTRIBUTION WIDTH 18.2 % (11.5-14.5); WHITE BLOOD COUNT 5.7 x10^3/uL (4.0-11.0)
[2018-12-04 22:34] LABS: BILIRUBIN,URINE NEGATIVE (NEG); CLARITY,URINE CLEAR; COLOR,URINE YELLOW; NITRITE,URINE NEGATIVE (NEG); PROTEIN,URINE 100 mg/dL (NEG-TRACE)
[2018-12-04 22:46] LABS: PROTHROMBIN TIME PATIENT 13.7 SEC (11.7-14.0)
[2018-12-04 22:47] LABS: CALCIUM 8.6 mg/dL (8.5-10.1); CREATININE 0.8 mg/dL (0.7-1.3); GFR 95.3; POTASSIUM 3.6 mmol/L (3.5-5.1)
[2018-12-04 22:53] LABS: ALBUMIN 2.5 g/dL (3.4-5.0); ALBUMIN/GLOBULIN RATIO 0.7 (1.0-1.7); TOTAL BILIRUBIN 0.4 mg/dL (0.2-1.0); TOTAL PROTEIN 5.9 g/dL (6.4-8.2)
[2018-12-04 22:56] LABS: BACTERIA,URINE 0 /HPF (0-FEW); RBC,URINE TNTC /HPF (0-2)
--- NOTE | 2018-12-04 23:16 | PHYS DOC ---
Past Medical History Past Medical History: Diabetes-Type II, High Cholesterol, Hypertension, Other Additional Past Medical Histor: HEPATITS Past Surgical History: No Surgical History, Tonsillectomy, Other Additional Past Surgical Histo: BLADDER SX 11/25/18 Alcohol Use: None Drug Use: None Adult General Chief Complaint Chief Complaint: BLOOD IN URINE HPI HPI Patient is a 73 year old male who presents with no complaints. He was sent here from the assisted care/rehabilitation facility where he is currently residing because he had blood in his urine. Patient is post recent bladder reconstruction as well as clot evacuation over the course of this past week to 10 days. Was discharged from the hospital proximally 3 days ago. According to the patient the assisted care facility called the urologic surgeon on-call who directed the patient be sent to the emergency department. Nothing makes the symptoms better or worse. Patient has no pain.[] Review of Systems Review of Systems Constitutional: Denies fever or chills [] Eyes: Denies change in visual acuity, redness, or eye pain [] HENT: Denies nasal congestion or sore throat [] Respiratory: Denies cough or shortness of breath [] Cardiovascular: No Chest pain or palpitations[] GI: Denies abdominal pain, nausea, vomiting, bloody stools or diarrhea [] : Denies dysuria, see history of present illness[] Musculoskeletal: Denies back pain or joint pain [] Integument: Denies rash or skin lesions [] Neurologic: Denies headache, focal weakness or sensory changes [] Endocrine: Denies polyuria or polydipsia [] All other systems were reviewed and found to be within normal limits, except as documented in this note. Allergies Allergies Allergies Coded Allergies Type Severity Reaction Last Updated Verified No Known Drug Allergies 11/26/18 No Physical Exam Physical Exam Constitutional: Well developed, well nourished, no acute distress, non-toxic appearance. [] HENT: Normocephalic, atraumatic, bilateral external ears normal, oropharynx moist, no oral exudates, nose normal. [] Eyes: PERRLA, EOMI, conjunctiva normal, no discharge. [] Neck: Normal range of motion, no tenderness, supple, no stridor. [] Cardiovascular:Heart rate regular rhythm, no murmur [] Lungs & Thorax: Bilateral breath sounds clear to auscultation [] Abdomen: Bowel sounds normal, soft, no tenderness, no masses, no pulsatile masses. : Normal male, catheter in place, blood at the urethral meatus. Suprapubic catheter is in place as well and the drain has approximately 5-10 mL of bloody fluid in the drain vacuum container. Urine in patient's Chappell bag appears slightly blood-tinged but is generally yellow in appearance. [] Skin: Warm, dry, no erythema, no rash. [] Back: No tenderness, no CVA tenderness. [] Extremities: No tenderness, no cyanosis, no clubbing, ROM intact, pretibial edema is present bilaterally 2-3+. [] Neurologic: Alert and oriented X 3, normal motor function, normal sensory function, no focal deficits noted. [] Psychologic: Affect normal, judgement normal, mood normal. [] Current Patient Data Vital Signs Vital Signs Date Time Temp Pulse Resp B/P (MAP) Pulse Ox O2 Delivery O2 Flow Rate FiO2 12/04/18 21:12 98.4 68 16 140/65 (90) 98 Room Air 98.4 Lab Values Laboratory Tests Test 12/04/18 22:10 White Blood Count 5.7 x10^3/uL (4.0-11.0) Red Blood Count 3.36 x10^6/uL (4.30-5.70) L Hemoglobin 10.5 g/dL (13.0-17.5) L Hematocrit 32.4 % (39.0-53.0) L Mean Corpuscular Volume 96 fL (79-100) Mean Corpuscular Hemoglobin 31 pg (25-35) Mean Corpuscular Hemoglobin Concent 32 g/dL (31-37) Red Cell Distribution Width 18.2 % (11.5-14.5) H Platelet Count 399 x10^3/uL (140-400) Neutrophils (%) (Auto) 56 % (31-73) Lymphocytes (%) (Auto) 22 % (24-48) L Monocytes (%) (Auto) 10 % (0-9) H Eosinophils (%) (Auto) 12 % (0-3) H Basophils (%) (Auto) 0 % (0-3) Neutrophils # (Auto) 3.2 x10^3uL (1.8-7.7) Lymphocytes # (Auto) 1.3 x10^3/uL (1.0-4.8) Monocytes # (Auto) 0.6 x10^3/uL (0.0-1.1) Eosinophils # (Auto) 0.7 x10^3/uL (0.0-0.7) Basophils # (Auto) 0.0 x10^3/uL (0.0-0.2) Prothrombin Time 13.7 SEC (11.7-14.0) Prothrombin Time INR 1.1 (0.8-1.1) Urine Collection Type Unknown Urine Color Yellow Urine Clarity Clear Urine pH 7.0 Urine Specific [place] 1.020 Urine Protein 100 mg/dL (NEG-TRACE) Urine Glucose (UA) Negative mg/dL (NEG) Urine Ketones (Stick) Negative mg/dL (NEG) Urine Blood Large (NEG) Urine Nitrite Negative (NEG) Urine Bilirubin Negative (NEG) Urine Urobilinogen Dipstick 1.0 mg/dL (0.2 mg/dL) Urine Leukocyte Esterase Small (NEG) Urine RBC Tntc /HPF (0-2) Urine WBC 5-10 /HPF (0-4) Urine Squamous Epithelial Cells None /LPF Urine Bacteria 0 /HPF (0-FEW) Urine Mucus Mod /LPF Sodium Level 141 mmol/L (136-145) Potassium Level 3.6 mmol/L (3.5-5.1) Chloride Level 104 mmol/L (98-107) Carbon Dioxide Level 27 mmol/L (21-32) Anion Gap 10 (6-14) Blood Urea Nitrogen 11 mg/dL (8-26) Creatinine 0.8 mg/dL (0.7-1.3) Estimated GFR (Cockcroft-Gault) 95.3 BUN/Creatinine Ratio 14 (6-20) Glucose Level 104 mg/dL (70-99) H Calcium Level 8.6 mg/dL (8.5-10.1) Total Bilirubin 0.4 mg/dL (0.2-1.0) Aspartate Amino Transferase (AST) 23 U/L (15-37) Alanine Aminotransferase (ALT) 16 U/L (16-63) Alkaline Phosphatase 103 U/L (46-116) Total Protein 5.9 g/dL (6.4-8.2) L Albumin 2.5 g/dL (3.4-5.0) L Albumin/Globulin Ratio 0.7 (1.0-1.7) L Laboratory Tests 12/04/18 22:10 Laboratory Tests 12/04/18 22:10 EKG EKG [] Radiology/Procedures Radiology/Procedures [] Course & Med Decision Making Course & Med Decision Making Pertinent Labs and Imaging studies reviewed. (See chart for details) ED course: Patient arrived, was placed in bed, and tolerated exam well. Consultation was made with urology who reported that they were not called regarding this patient. Basic laboratory testing was obtained, and the results were discussed with the patient who voiced understanding. All questions were answered. Patient was discharged in improved condition. Nayla decision making: There does not appear to be significant hemorrhage, no evidence of reaccumulation of the hematoma. No evidence of bladder rupture. No evidence of significant electrolyte abnormality.[] Dragon Disclaimer Dragon Disclaimer This electronic medical record was generated, in whole or in part, using a voice recognition dictation system. Departure Departure Impression: Primary Impression: Hematuria, gross Disposition: HOME, SELF-CARE Condition: IMPROVED Referrals: MARCO WRIGHT MD (PCP) Patient Instructions: Chappell Catheter Care, Adult, Hematuria, Adult Additional Instructions: Follow-up with your urologist. Keep your cystogram appointment in 2 days. Return to the ER if continuous dark bloody urine is present. Light pink/cool aid colored is okay. Return to the ER if any other concerns. MICHELE GEORGES DO Dec 04, 2018 23:16
[2018-12-04 23:30] VITALS: BP 110/65
== END 2018-12-04 23:38 | disposition home or self-care (01) ==
LOC: ER 21:05
DX: R31.0 Gross hematuria (principal); E11.9 Type 2 diabetes mellitus without complications; I10 Essential (primary) hypertension; E78.00 Pure hypercholesterolemia, unspecified
CPT/HCPCS: 12014; 36415; 80053; 81001; 85025; 85610; 87086; 99283; 99284-25

== ENCOUNTER → 2019-09-28 | Outpatient (CLI) | payer MEDICARE, BC ==
[~2019-09-28] MED LIST changes: +FENO145T3 PO; -FENO145T30 PO
--- NOTE | 2019-09-28 13:19 | KCIC ---
EXAM: Dual energy x-ray absorptiometry (DEXA). HISTORY: Postmenopausal female presents for osteoporosis screening. COMPARISON: None. TECHNIQUE: Dual energy x-ray absorptiometry of the lumbar spine and left hip was performed. Calculation of bone mineral density based on standard deviations above or below the expected young adult normal value (T-score) was completed. FINDINGS: The average bone mineral density in the third and fourth lumbar vertebrae is 0.856 g/cmxcm, corresponding with a T-score of -2.4. The average total bone mineral density in the left hip is 0.694 g/cmxcm, corresponding with a T-score of -2.2. IMPRESSION: Osteopenia. Note: Definitions established by the World Health Organization: 1. Normal: T-score is -1.0 or above. 2. Osteopenia: T-score is between -1.0 and -2.5 . 3. Osteoporosis: T-score is -2.5 or below. Electronically signed by: Sheela Medina MD (09/28/2019 1:16 PM) [place] [id number]
== END | disposition home or self-care (01) ==
LOC: KCIC DEXA 09:09
PROVIDERS: ATTEND Family Medicine
DX: M85.88 Other specified disorders of bone density and structure, other site (principal); M81.8 Other osteoporosis without current pathological fracture; M84.48XA Pathological fracture, other site, initial encounter for fracture; E11.9 Type 2 diabetes mellitus without complications
CPT/HCPCS: 77080

== ENCOUNTER 2021-02-17 17:32 | Emergency (ER) | payer MEDICARE, BC ==
[~2021-02-17] VITALS: Ht 172.7 cm; Wt 61.3 kg
[~2021-02-17 17:32] MED LIST changes: -POLY17PO28 PO; +POLY17PO52 PO; -RAMI2.5C2 PO; +RAMI2.5C41 PO
[2021-02-17 20:58] LABS: BILIRUBIN,URINE NEGATIVE (NEG); CLARITY,URINE TURBID; COLOR,URINE YELLOW; NITRITE,URINE POSITIVE (NEG); PROTEIN,URINE 30 mg/dL (NEG-TRACE)
[2021-02-17 21:06] LABS: WBC,URINE TNTC /HPF (0-4)
[2021-02-17 21:07] LABS: BACTERIA,URINE MANY /HPF (0-FEW)
--- NOTE | 2021-02-17 22:42 | RAD ---
Abdominal and Pelvis CT, Without Contrast: History: Reason: pain, history of bladder cancer, packer placement / Spl. Instructions: / History: Comparison: November 25, 2018. Procedure: Axial images are obtained of the abdomen and pelvis, without IV or oral contrast. Oral Contrast: No Findings: Evaluation of solid organs is limited without contrast. The rectal vault is distended with air and stool. There is air and stool scattered throughout the col on. The gallbladder appears normal. The appendix is not seen. Liver: Normal. Spleen: Normal. Pancreas: Atrophic. There is been prior fracture due to prior right hip total arthroplasty. There is multiple old vertebr al compression fractures and there has been prior vertebroplasty at T11, T12 and L1. Adrenal Glands: Normal. Kidneys: Normal. There is no free air or free fluid. There is no lymphadenopathy. The urinary bladder is collapsed and a Packer and not well evaluated.. There is no pericolonic inflammation identified. Impression: Fecal impaction and constipation. End impression PQRS Compliance Statement: One or more of the following individualized dose reduction techniques were utilized for this examinat ion: 1. Automated exposure control 2. Adjustment of the mA and/or kV according to patient size 3. Use of iterative reconstruction technique Electronically signed by: Evaristo Graves III, MD (02/17/2021 10:40 PM) [facility]
[2021-02-17] MEDS ORDERED: CEPH500C PO (22:51)
[2021-02-17] MEDS ORDERED: SENN-121 PO (22:51)
--- NOTE | 2021-02-17 22:51 | ED.ADGEN ---
Past Medical History Past Medical History: Cancer, Diabetes-Type II, High Cholesterol, Hypertension, Hypothyroid, Other Additional Past Medical Histor: HEPATITS, PROSTATE CA Past Surgical History: Tonsillectomy, Other Additional Past Surgical Histo: BLADDER SX 11/25/18, PROSTATE REMOVAL Smoking Status: Never Smoker Alcohol Use: None Drug Use: None General Adult EDM: Chief Complaint: MALE UROGENITAL PROBLEMS HPI: HPI: Patient is a 76-year-old male with past medical history of prostate cancer with removal of the prostate who presents to the emergency room with urinary retention. Patient states that earlier today he was not able to urinate and now he is having some urinary incontinence. He states he can tell that he needs to urinate but is unable to hold his urine. He is having some burning with urination. He states has been quite sometime since he has had any issues with this. He has never required a Packer previously. He denies any nausea, vomiting, chills, sweats, fever. Review of Systems: Review of Systems: Complete ROS is negative unless otherwise documented in HPI Allergies: Allergies: Allergies Coded Allergies Type Severity Reaction Last Updated Verified No Known Drug Allergies 11/26/18 No Physical Exam: PE: General: Awake, alert, NAD. Well Nourished, well hydrated. Cooperative HEENT: Atraumatic, EOMI, PERRL, airway patent, moist oral mucosa Neck: Supple, trachea midline Respiratory: CTA bilaterally, normal effort, no wheezing/crackles CV: RRR, no murmur, cap refill <2 GI: Soft, nondistended, nontender, no masses MSK: No obvious deformities Skin: Warm, dry, intact Neuro: A&O x3, speech NL, sensory and motor grossly intact, no focal deficits Psych: Normal affect, normal mood, not suicidal or homicidal Current Patient Data: Labs: Laboratory Tests Test 02/17/21 20:50 Urine Collection Type U cath Urine Color Yellow Urine Clarity Turbid Urine pH 6.0 (<5.0-8.0) Urine Specific Cougar 1.025 (1.000-1.030) Urine Protein 30 mg/dL (NEG-TRACE) Urine Glucose (UA) Negative mg/dL (NEG) Urine Ketones (Stick) Negative mg/dL (NEG) Urine Blood Moderate (NEG) Urine Nitrite Positive (NEG) Urine Bilirubin Negative (NEG) Urine Urobilinogen Dipstick 1.0 mg/dL (0.2 mg/dL) Urine Leukocyte Esterase Large (NEG) Urine RBC 3-5 /HPF (0-2) Urine WBC Tntc /HPF (0-4) Urine Bacteria Many /HPF (0-FEW) Urine Mucus Marked /LPF Vital Signs: Vital Signs Date Time Temp Pulse Resp B/P (MAP) Pulse Ox O2 Delivery O2 Flow Rate FiO2 02/17/21 17:32 98.2 79 18 144/74 (97) 97 Room Air 98.2 EKG: EKG: [] Heart Score: C/O Chest Pain: N/A Risk Factors: Risk Factors: DM, Current or recent (<one month) smoker, HTN, HLP, family history of CAD, obesity. Risk Scores: Score 0 - 3: 2.5% MACE over next 6 weeks - Discharge Home Score 4 - 6: 20.3% MACE over next 6 weeks - Admit for Clinical Observation Score 7 - 10: 72.7% MACE over next 6 weeks - Early Invasive Strategies Radiology/Procedures: Radiology/Procedures: [] Course & Med Decision Making: Course & Med Decision Making Pertinent Labs and Imaging studies reviewed. (See chart for details) patient is a 76-year-old male who presents to the emergency room initially with urinary retention and then multiple episodes where he was unable to hold his urine. UA shows a significant infection. I did offer the patient multiple options including a Packer/antibiotics/home, antibiotics without packer/home, and admission for IV antibiotics. Patient states that he would like to try a Packer and going back to his facility. Packer was placed without difficulty. Shortly after Packer was placed to be were informed that patient has had a bladder rupture before. There is a small amount of pink tinge to the urine in his Packer. He did have an increase in heart rate and blood pressure after the Packer was placed. CT was done to rule out any free fluid or signs of bladder rupture. CT shows constipation. Heart rate and blood pressure returned without any intervention. Is likely that these were due to the pain during Packer insertion as patient states that this was uncomfortable but now he no longer has any pain in his penis, pelvis, or abdomen. Patient will need enemas and stool softeners at his facility. Discussed results with patient and family. Patient's test results and vitals while in the ED were fully reviewed and discussed with the patient. Patient is stable and at this time does not need admission to the hospital. We have discussed strict return precautions and the importance of following up with their Primary Care Physician. Patient stated understanding and was given an opportunity to ask any questions. Patient is in agreement with plan. Dragon Disclaimer: Dragon Disclaimer: This electronic medical record was generated, in whole or in part, using a voice recognition dictation system. Departure Departure Impression: Primary Impression: Acute urinary retention Additional Impressions: UTI (urinary tract infection) Constipation Disposition: HOME / SELF CARE / HOMELESS Condition: STABLE Referrals: MARCO WRIGHT MD (PCP) Patient Instructions: Urinary Tract Infection Scripts Sodium Phosphate,[place]-Dibasic (Pure and Gentle Saline Enema) 133 Ml Enema 133 ML RC 1X for 1 Day, #1 EACH Prov: SHIRIN BAUER MD 02/17/21 Sennosides/Docusate Sodium (Colace 2-in-1 Tablet) 1 Each Tablet 1 TAB PO BID for 30 Days, #60 TAB 0 Refills Prov: SHIRIN BAUER MD 02/17/21 Cephalexin (CEPHALEXIN) 500 Mg Capsule 1 CAP PO BID for 10 Days, #20 CAP Prov: SHIRIN BAUER MD 02/17/21 Problem Qualifiers SHIRIN BAUER MD February 17, 2021 22:51
[2021-02-17] MEDS ORDERED: [UNRECOGNIZED DRUG - CODE] RC (22:54)
[2021-02-17 23:00] VITALS: BP 142/68
== END 2021-02-17 23:30 | disposition home or self-care (01) ==
LOC: ER 17:32
DX: N39.0 Urinary tract infection, site not specified (principal); K59.00 Constipation, unspecified; E11.9 Type 2 diabetes mellitus without complications; E78.00 Pure hypercholesterolemia, unspecified; I10 Essential (primary) hypertension; E03.9 Hypothyroidism, unspecified; Z85.46 Personal history of malignant neoplasm of prostate
CPT/HCPCS: 51702; 74176; 81001; 87086; 99285-25